=== PATIENT | male | born 1980 | race Caucasian/White ===

== ENCOUNTER → 2017-05-07 | Outpatient (REF) | payer OTHER | LOC: M LAB REF 13:54 | PROVIDERS: ATTEND Internal Medicine Medical Oncology | DX: D47.3 Essential (hemorrhagic) thrombocythemia (principal) ==

== ENCOUNTER → 2017-11-05 | Outpatient (REF) | payer OTHER | LOC: M SFHCLERA 15:24 | DX: J02.9 Acute pharyngitis, unspecified (principal) ==

== ENCOUNTER → 2019-05-02 | Outpatient (CLI) | payer BC, OTHER ==
[~2019-05-02] MED LIST: CLAR1TAB13 PO
--- NOTE | 2019-05-02 13:58 | REP ---
DIGITAL BILATERAL DIAGNOSTIC MAMMOGRAPHY WITH CAD AND FOCUSED BILATERAL SUBAREOLAR BREAST SONOGRAPHY: HISTORY: Two 5 mm lumps midline below the nipple, pea-sized lump. Paternal cousin with history of breast carcinoma. Lump is present times 2-3 weeks. MAMMOGRAPHIC FINDINGS: Two skin markers are affixed to the skin at the site of the palpable lumps projecting in the subareolar region. Craniocaudad and mediolateral oblique views of the right breast demonstrate a mild gynecomastia pattern in the subareolar tissue with a fibroglandular elements. No abnormalities noted on the left. No mass or microcalcification is observed. No worrisome skin change is seen. SONOGRAPHIC FINDINGS: Subareolar regions of both breasts are scanned. There is some hypoechoic tissue posterior to the right nipple consistent with mild gynecomastia. No mass lesion is seen. No similar changes are noted on the left. IMPRESSION: BIRADS 2: BI-RADS/ACR category 2 mammogram. Benign Findings. BIRADS category 2 benign findings. Gynecomastia pattern right breast. Clinical follow-up is advised. This mammogram was interpreted with the aid of an FDA-approved computer-aided detection system. The patient states she had a clinical breast exam in April 2019. The patient letter being requested is M#[email or web address]. Electronically Signed by Palomo Mcginnis MD 05/02/2019 02:17 P
== END ==
LOC: M RAD 10:59
PROVIDERS: ATTEND Nurse Practitioner
DX: N63.10 Unspecified lump in the right breast, unspecified quadrant (principal); Z85.3 Personal history of malignant neoplasm of breast; N62 Hypertrophy of breast

== ENCOUNTER → 2019-09-12 | Outpatient (REF) | payer OTHER | LOC: M SFHCLERA 13:26 | PROVIDERS: ATTEND Nurse Practitioner Family | DX: R53.81 Other malaise (principal) ==

== ENCOUNTER → 2019-09-22 | Outpatient (CLI) | payer BC, OTHER ==
--- NOTE | 2019-09-22 11:24 | REP ---
CT chest without contrast: History: Dyspnea. No prior study. CT findings: Digital preliminary shrink pit supervisor radiograph and CT images demonstrate a Bochdalek hernia of the left diaphragm transmitting the splenic flexure. 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 The pancreatic tail and adjacent fat are also transmitted into the lower chest through the fairly large posterior left diaphragmatic hernia. No adrenal lesion is seen on either side. The visualized upper abdominal structures are otherwise unremarkable. There is no evidence of hilar or mediastinal mass or adenopathy. There is minimal fissural fibrosis along the major fissure on the left. There is a 4 mm noncalcified nodule in the left upper lobe adjacent to the fissure. There is another 4 mm nodule in the left lower lobe visible on page 68 of 122 in series 201 of today's study. No other significant pulmonary nodule is appreciated. No infiltrate or mass lesion is seen. Impression: Fairly large posterior left hemidiaphragmatic hernia transmitting the splenic flexure of the colon and the tail of the pancreas into the left lower chest. There are associated old post-traumatic rib deformities. The spleen is absent. There are two 4 mm noncalcified pulmonary nodules in the left lung. Otherwise no acute disease. Consider followup chest CT study in 1 year. Electronically Signed by Palomo Mcginnis MD 09/22/2019 12:26 P
== END ==
LOC: M RAD 08:00
PROVIDERS: ATTEND Physician Assistant
DX: R06.02 Shortness of breath (principal)

== ENCOUNTER → 2020-11-04 | Outpatient (CLI) | payer BC, OTHER ==
[~2020-11-04] MED LIST changes: +BUSP1TAB PO; +FEXO180T58 PO; +MULTTAB61 PO; +OMEP-221 PO
== END ==
LOC: M LABSMTC 10:54
PROVIDERS: ATTEND Anesthesiology
DX: Z01.812 Encounter for preprocedural laboratory examination (principal); Z20.822 Contact with and (suspected) exposure to COVID-19

== ENCOUNTER 2020-11-09 09:52 | Day surgery (SDC) | payer BC, OTHER ==
[~2020-11-09] VITALS: Ht 180.3 cm; Wt 133.8 kg
[~2020-11-09 09:52] MED LIST changes: +LR 1,000 ML IV ONE; +ceFAZolin SOD 2 GM in IV 1 EA IV ONE
--- OUTSIDE RECORDS SUMMARY | 2020-11-09 09:57 | CCD | Continuity of Care Document ---
Author Author Bhavesh GARY [facility] Organization Unknown Address [address] [place] [address] [place] [address] Phone [phone] Care Team Providers Care Geometrician Name Role Phone Husam De Paz D.O. [facility] [phone] Problems Active Problems Provider Date Allergic rhinitis Kourtney Gary FNP-BC Onset: 12/28/2005 Diaphragmatic hernia Husam De Paz D.O., FAA Onset: Family history of ischemic heart disease Brant Sanz RPA Onset: 09/24/2008 Anxiety state Magdalena Marquez PA Onset: 09/06 Obstructive sleep apnea syndrome Magdalena Marquez PA Onset: 09/06/2020 Social History Type Date Description Comments Sex Unknown Tobacco Use Start: Unknown Never Smoked Cigarettes ETOH Use Occasionally consumes beer Recreational Drug Use Never Used Drugs Tobacco Use Start: Unknown Patient has never smoked Allergies, Adverse Reactions, Alerts Description No Known Drug Allergies Medications Active Medications SIG Qnty Indications Ordering Provide r Date Omeprazole 40mg Capsules DR 1 by mouth every day 30caps Kourtney Gary FNP-BC 1 Buspirone HCL 7.5mg Tablets one tab by mouth twice a day 60tabs Kourtney Gary FNP-BC 020 Sherri Allergy 180mg Tablets 1 by mouth every day Unknown Flintstones Gummies Chewtabs 2 PO prn Unknown Medications Administered in Office Medication SIG Qnty Indications Ordering Provider Date Injection (SC)/(Im) Injection Magdalena Marquez PA 05/17/2020 Immunizations CPT Code Status Date Vaccine Lot # [id number] Given 05/17/2020 Influenza Virus Vaccine, Quadrivalent, Slit Virus, Im Use 3Y & Up [id number] Vital Signs Date Vital Result Comment 09/29/2020 3:49pm BP Systolic 138 mmHg BP Diastolic 86 mmHg Body Temperature 97.1 F Heart Rate 86 /min Respiratory Rate 19 /min Height 71 inches 5'11" Weight 290.00 lb [place] Body Weight 172 lb BMI (Body Mass Index) 40.4 kg/m2 O2 % BldC Oximetry 95 % (AT Rest), (Room Air ) 09/06/2020 1:05pm BP Systolic 142 mmHg BP Diastolic 80 mmHg Body Temperature 97.8 F Heart Rate 95 /min Respiratory Rate 16 /min Height 71 inches 5'11" Weight 292.00 lb [place] Body Weight 172 lb BMI (Body Mass Index) 40.7 kg/m2 O2 % BldC Oximetry 97 % (AT Rest), (Room Air ) Results Test Acquired Date Facility Test Result H/L Range Note CBC 09/29/2020 [facility] WBC 9.3 10E3/uL 4.1 - 10.9 1 RBC 4.85 10E6/uL 4.20 - 6.30 HGB 15.3 g/dL 12.0 - 18.0 HCT 46.2 % 37.0 - 51.0 MCV 95.3 fL 80.0 - 97.0 MCH 31.5 pg 26.0 - 32.0 MCHC 33.1 g/dL 31.0 - 36.0 PLT 428 10E3/uL 140 - 440 RDW-CV 14.0 % 11.5 - 14.5 Lym% 28.3 % 10.0 - 58.5 Neut% 60.9 % 37.0 - 92.0 MXD% 10.8 % 0.1 - 24.0 Lym# 2.6 10E3/uL 0.6 - 4.1 Neut# 5.7 % 2.0 - 7.8 MXD# 1.0 10E3/uL 0.0 - 1.8 MPV 9.4 fL 9.0 - 13.0 Laboratory test finding 09/29/2020 [facility] Sedimentation Rate 7 mm/hr 0 - 20 CMP 09/29/2020 [facility] Glu 87 mg/dL 70 - 110 BUN 15 mg/dL 8 - 23 Creat 0.9 mg/dL 0.7 - 1.2 BUN/Creatinine Ratio 17.5 CALC Na 137 mmol/L 136 - 145 K 4.5 mmol/L 3.5 - 5.1 CL 102.0 mmol/L 98.0 - 107.0 Co2 26.7 mmol/L 22.0 - 29.0 CA 9.6 mg/dL 8.6 - 10.2 TP 7.1 g/dL 6.6 - 8.7 Alb 4.5 g/dL 3.5 - 5.2 A/G Ratio 1.7 CALC Globulin 2.7 CALC Alp 96.7 U/L 40 - 129 Alt (SGPT) 31 U/L 0 - 41 Ast (Sgot) 19 U/L 0 - 40 Tbili 0.41 mg/dL 0.0 - 1.2 Osmolality-Calculated 274.4 CALC Anion Gap 13 mmol/L eGFR 122 # Calc 2 eGFR Non-Afr. Gu[place]ian 105 # Calc 3 Laboratory test finding 09/29/2020 [place], [place] [id number] [phone] Amylase 69 U/L 30 - 110 Lipase Serum 51 U/L 13 - 60 Laboratory test finding 05/17/2020 [facility] TSH 1.025 ulU/mL 0.60 - 4.8 CMP 04/22/2020 [facility] Glu 105 mg/dL 70 - 110 4 BUN 18 mg/dL 8 - 23 Creat 0.8 mg/dL 0.7 - 1.2 BUN/Creatinine Ratio 20.8 Calc Na 139 mmol/L 136 - 145 K 4.3 mmol/L 3.5 - 5.1 CL 102.2 mmol/L 98.0 - 107.0 Co2 27.6 mmol/L 22.0 - 29.0 CA 9.2 mg/dL 8.6 - 10.2 TP 7.1 g/dL 6.6 - 8.7 Alb 4.5 g/dL 3.5 - 5.2 A/G Ratio 1.7 Calc Globulin 2.6 Calc Alp 91.5 U/L 40 - 129 Alt (SGPT) 32 U/L 0 - 41 Ast (Sgot) 26 U/L 0 - 40 Tbili 0.60 mg/dL 0.0 - 1.2 Osmolality-Calculated 281.0 Calc Anion Gap 16 mmol/L eGFR 129 # Calc 5 eGFR Non-Afr. Guamanian 111 # Calc 6 Laboratory test finding 04/22/2020 [place] [address] [phone] Pro-BNP 7 pg/mL 0 - 125 1 NORMAL RANGES Age WBC RBC HGB HCT MCV PLT Adult M 4.1-10.9 4.20-6.30 12.0-18.0 37.0-51.0 80-97 140-440 Adult F 4.1-10.9 4.04-5.48 12.0-18.0 37.0-51.0 80-97 140-440 0 -1 Yr 5.0-20.0 3.9-5.9 15-18 MV: 44 MV: 91 MV: 277 2-9 Yr. 6.0-17.0 3.8-5.4 11-13 MV: 37 MV: 78 MV: 300 10 Yrs. 5.0-13.0 3.8-5.4 12-15 MV: 39 MV: 80 MV: 250 NOTE: * FOR ADULT BLACK MALES AND FEMALES, NORMAL WBC IS 2.9-7.7 K/ML * FOR ADULT BLACK MALES AND FEMALES, NORMAL RBC,HGB, AND HCT IS 5% LESS SOURCE FOR DATA: [employer] 1800 OPERATION MANUAL( AUTOMATED BLOOD COUNTS AND DIFF.) APPENDIX B-3 CHRONIC KIDNEY DISEASE STAGING PER NKF: MALE GFR INTERPRETATION: 20-49 YRS: >60 mL/min Normal 50-59 YRS: >56 mL/min Normal 60-69 YRS: >49 mL/min Normal 70-79 YRS: >42 mL/min Normal 80 and above >35 mL/min Normal FEMALE GRF INTERPRETATION: 20-39 YRS: >60 mL/min Normal 40-49 YRS: >58 mL/min Normal 50-59 YRS: >51 mL/min Normal 60-69 YRS: >45 mL/min Normal 70-79 YRS: >39 mL/min Normal 80 and above >32 mL/min Normal 2 CKD-EPI 3 CKD-EPI 4 CHRONIC KIDNEY DISEASE STAGI NG PER NKF: MALE GFR INTERPRETATION: 20-49 YRS: >60 mL/min Normal 50-59 YRS: >56 mL/min Normal 60-69 YRS: >49 mL/min Normal 70-79 YRS: >42 mL/min Normal 80 and above >35 mL/min Normal FEMALE GRF INTERPRETATION: 20-39 YRS: >60 mL/min Normal 40-49 YRS: >58 mL/min Normal 50-59 YRS: >51 mL/min Normal 60-69 YRS: >45 mL/min Normal 70-79 YRS: >39 mL/min Normal 80 and above >32 mL/min Normal 5 CKD-EPI 6 CKD-EPI Procedures Date Code Description Status 05/17/2020 67436 Injection (SC)/(Im) Completed Medical Devices Description No Information Available Encounters Type Date Location Provider Dx Diagnosis Office Visit 09/29/2020 3:40p [facility] Kourtney Gary FNP-BC R10.84 Generalized abdominal pain R14.0 Abdominal distension (gaseou s) K42.9 Umbilical hernia without obs truction or gangrene Office Visit 09/06/2020 1:00p [facility] Crystal Marquez PA F41.9 Anxiety disorder, unspecified G47.33 Obstructive sleep apnea (storm lt) (pediatric) Office Visit 06/04/2020 10:00a [facility] Crystal Marquez PA R45.4 Irritability and anger F41.9 Anxiety disorder, unspecifie d Office Visit 05/17/2020 1:00p [facility] Crystal Marquez PA R60.9 Edema, unspecified R45.4 Irritability and anger Z23 Encounter for immunization Office Visit 04/22/2020 9:15a [facility] Crystal Marquez PA R60.9 Edema, unspecified R06.02 Shortness of breath Assessments Date Code Description Provider 09/29/2020 R10.84 Generalized abdominal pain Kourtney Carney FNP-BC 09/29/2020 R14.0 Abdominal distension (gaseous) R pollyselenaKourtney mar FNP-BC 09/29/2020 K42.9 Umbilical hernia without obstruc tion or gangrene Kourtney Gary FNP-BC 09/06/2020 F41.9 Anxiety disorder, unspecified Ba Magdalena carr, PA 09/06/2020 G47.33 Obstructive sleep apnea (adult) (pediatric) Magdalena Marquez, PA 06/04/2020 R45.4 Irritability and anger Magdalena oR, PA 06/04/2020 F41.9 Anxiety disorder, unspecified Ba Magdalena carr M, PA 05/17/2020 R60.9 Edema, unspecified Magdalena Marquez, PA 05/17/2020 R45.4 Irritability and anger Magdalena Ro, PA 05/17/2020 Z23 Encounter for immunization Magdalena Hernandez, PA 04/22/2020 R60.9 Edema, unspecified Magdalena Marquez M, PA 04/22/2020 R06.02 Shortness of breath Magdalena Marquez, PA Plan of Treatment Future Appointment(s):* 12/07/2020 1:00 pm - Kourtney Gary FNP-BC at [facility] Functional Status Description No Information Available Mental Status Description No Information Available Referrals Refer to Dr Reason for Referral Status Appt Date Rodrigo Camarillo D.O. Urgent Referral umbilical hernia with p ain Sent 10/04/2020 6 [facility], [address] [place] [address] [phone]
--- OUTSIDE RECORDS SUMMARY | 2020-11-09 09:57 | CCD | Continuity of Care Document ---
Author Author Bhavesh CHERY MD Organization Unknown Address [address] [place] [address] Phone [phone] Care Team Providers Care Day Care Attendant Name Role Phone Carlitos Becerra R.P.A.. AUT[facility] [phone] Husam De Paz D.O. AUT[facility] [phone] Problems Active Problems Provider Date Restrictive lung disease JEANCARLOS Smith Onset: 09/23/19 20 Restrictive lung disease JEANCARLOS Smith Onset: 07/03/20 19 Restrictive lung disease JEANCARLOS Smith Onset: 07/03/20 19 Other nonspecific abnormal finding of lung field JEANCARLOS Mart Onset: 05/15/2019 Difficulty breathing JEANCARLOS Smith Onset: 05/15/2019 Social History Type Date Description Comments Sex Unknown ETOH Use Sociable Tobacco Use Start: Unknown Patient has never smoked Smoking Status Reviewed: 09/23/19 Patient has never smoked Allergies, Adverse Reactions, Alerts Description No Known Drug Allergies Medications Active Medications SIG Qnty Indications Ordering Provide r Date Claritin 10mg Tablets take one by mouth once a day as needed Unknown Fexofenadine HCL 180mg Tablets every day Unknown Immunizations CPT Code Status Date Vaccine Lot # [id number] Given 07/03/2019 Afluria, Quadrivalent, 0.5ml , [facility]# [id number] Vital Signs Date Vital Result Comment 10/04/2020 9:42am BP Systolic 150 mmHg BP Diastolic 86 mmHg Heart Rate 79 /min Height 71 inches 5'11" Weight 296.50 lb BMI (Body Mass Index) 41.3 kg/m2 [place] Body Weight 172 lb Weight 134.492 kg BSA (Body Surface Area) 2.49 m2 09/23/2019 1:45pm BP Systolic 132 mmHg BP Diastolic 80 mmHg Heart Rate 87 /min O2 % BldC Oximetry 93 % Height 71 inches 5'11" Weight 278.00 lb BMI (Body Mass Index) 38.8 kg/m2 [place] Body Weight 172 lb Weight 126.101 kg BSA (Body Surface Area) 2.43 m2 Results Description No Information Available Procedures Description No Information Available Medical Devices Description No Information Available Encounters Description No Information Available Assessments Description No Information Available Plan of Treatment No Information Available Functional Status Description No Information Available Mental Status Description No Information Available Referrals Refer to Reason for Referral Status Appt Date Jakob Chery JR, MD UMBILICAL HERNIA W/ PAIN Scheduled 10/04/[address] [place] [address] [phone]
--- OUTSIDE RECORDS SUMMARY | 2020-11-09 09:57 | CCD | Continuity of Care Document ---
Author Author Bhavesh GARY [facility] Organization Unknown Address [address] [place] [address] [place] [address] Phone [phone] Care Team Providers Care Oil Extractor Name Role Phone Husam De Paz D.O. [facility] [phone] Problems Active Problems Provider Date Allergic rhinitis [...] CPT Code Status Date Vaccine Lot # [id number] Given 05/17/2020 Influenza Virus Vaccine, Quadrivalent, Slit Virus, Im Use 3Y & Up [id number] Vital Signs Date Vital Result Comment 09/29/2020 3:49pm BP Systolic 138 mmHg BP Diastolic 86 mmHg Body Temperature 97.1 F Heart Rate 86 /min Respiratory Rate 19 /min Height 71 inches 5'11" Weight 290.00 lb [place] Body Weight 172 lb BMI (Body Mass Index) 40.4 kg/m2 O2 % BldC Oximetry 95 % (AT Rest), (Room Air ) 09/06/2020 1:05pm BP Systolic 142 mmHg BP Diastolic 80 mmHg Body Temperature 97.8 F Heart Rate 95 /min Respiratory Rate 16 /min Height 71 inches 5'11" Weight 292.00 lb [place] Body Weight 172 lb BMI (Body Mass [...] eGFR 122 # Calc 2 eGFR Non-Afr. [place] 105 # Calc 3 Laboratory test finding 09/29/2020 [place], [place] [id number] [phone] Amylase 69 U/L 30 - 110 Lipase [...] eGFR 129 # Calc 5 eGFR Non-Afr. [place] 111 # Calc 6 Laboratory test finding 04/22/2020 [place] [address] [phone] Pro-BNP 7 pg/mL 0 - 125 1 [...] HCT IS 5% LESS SOURCE FOR DATA: [employer] 1800 OPERATION MANUAL( AUTOMATED BLOOD COUNTS AND [...] CKD-EPI Procedures Date Code Description Status 05/17/2020 03562 Injection (SC)/(Im) Completed Medical Devices Description No Information Available Encounters Type Date Location Provider Dx Diagnosis Office Visit 09/29/2020 3:40p [facility] Kourtney Gary FNP-BC R10.84 Generalized abdominal pain R14.0 Abdominal distension (gaseou s) K42.9 Umbilical hernia without obs truction or gangrene Office Visit 09/06/2020 1:00p [facility] Crystal Marquez PA F41.9 Anxiety disorder, unspecified G47.33 Obstructive sleep apnea (storm lt) (pediatric) Office Visit 06/04/2020 10:00a [facility] Crystal Marquez PA R45.4 Irritability and anger F41.9 Anxiety disorder, unspecifie d Office Visit 05/17/2020 1:00p [facility] Crystal Marquez PA R60.9 Edema, unspecified R45.4 Irritability and anger Z23 Encounter for immunization Office Visit 04/22/2020 9:15a [facility] Crystal Marquez PA R60.9 Edema, unspecified [...] PA 06/04/2020 R45.4 Irritability and anger Magdalena Ro, PA 06/04/2020 F41.9 Anxiety disorder, unspecified Ba Magdalena carr M, PA 05/17/2020 R60.9 Edema, unspecified Magdalena Marquez, PA 05/17/2020 R45.4 Irritability and anger Magdalena Ro, PA 05/17/2020 Z23 Encounter for immunization Magdalena Hernandez, PA 04/22/2020 R60.9 Edema, unspecified Magdalena Marquez M, PA 04/22/2020 R06.02 Shortness of breath Magdalena Marquez, PA Plan of Treatment Future Appointment(s):* 12/07/2020 1:00 pm - Kourtney Gary FNP-BC at [facility] Functional Status Description No Information Available Mental Status Description No Information Available Referrals Refer to Dr Reason for Referral Status Appt Date Rodrigo Camarillo D.O. Urgent Referral umbilical hernia with p ain Sent 10/04/2020 6 [facility], [address] [place] [address] [phone]
--- OUTSIDE RECORDS SUMMARY | 2020-11-09 09:57 | CCD | Continuity of Care Document ---
Author Author Bhavesh GARY [facility] Organization Unknown Address [address] [place] [address] [place] [address] Phone [phone] Care Team Providers Care Yardage Control Operator Forming Name Role Phone Husam De Paz D.O. [facility] [phone] Problems Active Problems Provider Date Allergic rhinitis [...] CPT Code Status Date Vaccine Lot # [id number] Given 05/17/2020 Influenza Virus Vaccine, Quadrivalent, Slit Virus, Im Use 3Y & Up [id number] Vital Signs Date Vital Result Comment 09/29/2020 3:49pm BP Systolic 138 mmHg BP Diastolic 86 mmHg Body Temperature 97.1 F Heart Rate 86 /min Respiratory Rate 19 /min Height 71 inches 5'11" Weight 290.00 lb [place] Body Weight 172 lb BMI (Body Mass Index) 40.4 kg/m2 O2 % BldC Oximetry 95 % (AT Rest), (Room Air ) 09/06/2020 1:05pm BP Systolic 142 mmHg BP Diastolic 80 mmHg Body Temperature 97.8 F Heart Rate 95 /min Respiratory Rate 16 /min Height 71 inches 5'11" Weight 292.00 lb [place] Body Weight 172 lb BMI (Body Mass [...] eGFR 122 # Calc 2 eGFR Non-Afr. Portuguese 105 # Calc 3 Laboratory test finding 09/29/2020 [place], [place] [address] [phone] Amylase 69 U/L 30 - 110 Lipase [...] eGFR 129 # Calc 5 eGFR Non-Afr. Portuguese 111 # Calc 6 Laboratory test finding 04/22/2020 [place] [address] [phone] Pro-BNP 7 pg/mL 0 - 125 1 [...] HCT IS 5% LESS SOURCE FOR DATA: [employer] 1800 OPERATION MANUAL( AUTOMATED BLOOD COUNTS AND [...] CKD-EPI Procedures Date Code Description Status 05/17/2020 17185 Injection (SC)/(Im) Completed Medical Devices Description No Information Available Encounters Type Date Location Provider Dx Diagnosis Office Visit 09/29/2020 3:40p [place] [facility] Kourtney Gary FNP-BC R10.84 Generalized abdominal pain R14.0 Abdominal distension (gaseou s) K42.9 Umbilical hernia without obs truction or gangrene Office Visit 09/06/2020 1:00p [facility] Crystal Marquez PA F41.9 Anxiety disorder, unspecified G47.33 Obstructive sleep apnea (storm lt) (pediatric) Office Visit 06/04/2020 10:00a [facility] Crystal Marquez PA R45.4 Irritability and anger F41.9 Anxiety disorder, unspecifie d Office Visit 05/17/2020 1:00p [facility] Crystal Marquez PA R60.9 Edema, unspecified R45.4 Irritability and anger Z23 Encounter for immunization Office Visit 04/22/2020 9:15a [facility] [facility] Crystal Marquez PA R60.9 Edema, unspecified [...] 1:00 pm - Kourtney Gary FNP-BC at [facility] Functional Status Description No Information Available Mental Status Description No Information Available Referrals Refer to Dr Reason for Referral Status Appt Date Rodrigo Camarillo D.O. Urgent Referral umbilical hernia with p ain Sent 10/04/2020 6 [facility], [address] [place] [address] [phone]
--- OUTSIDE RECORDS SUMMARY | 2020-11-09 09:57 | CCD | Continuity of Care Document ---
Author Author Bhavesh GARY [facility] Organization Unknown Address [address] [place] [address] [place] [phone] Phone [phone] Care Team Providers Care Personalization Specialist Name Role Phone Husam De Paz D.[facility]. [facility] [phone] Problems Active Problems Provider Date Allergic rhinitis [...] CPT Code Status Date Vaccine Lot # [id number] Given 05/17/2020 Influenza Virus Vaccine, Quadrivalent, Slit Virus, Im Use 3Y & Up [id number] Vital Signs Date Vital Result Comment 10/20/2020 4:20pm BP Systolic 120 mmHg BP Diastolic 80 mmHg Body Temperature 97.5 F Heart Rate 86 /min Respiratory Rate 18 /min Height 71 inches 5'11" Weight 293.00 lb [place] Body Weight 172 lb BMI (Body Mass Index) 40.9 kg/m2 O2 % BldC Oximetry 94 % 09/29/2020 3:49pm BP Systolic 138 mmHg BP Diastolic 86 mmHg Body Temperature 97.1 F Heart Rate 86 /min Respiratory Rate 19 /min Height 71 inches 5'11" Weight 290.00 lb [place] Body Weight 172 lb BMI (Body Mass Index) 40.4 kg/m2 O2 % BldC Oximetry 95 % (AT Rest), (Room Air ) Results [...] eGFR 122 # Calc 2 eGFR Non-Afr. [place] Citizen 105 # Calc 3 Laboratory test finding 09/29/2020 [place], [place] [id number] [phone] Amylase 69 U/L 30 - 110 Lipase [...] eGFR 129 # Calc 5 eGFR Non-Afr. [place] Citizen 111 # Calc 6 Laboratory test finding 04/22/2020 [place] [address] [phone] Pro-BNP 7 pg/mL 0 - 125 1 [...] HCT IS 5% LESS SOURCE FOR DATA: [employer] 1800 OPERATION MANUAL( AUTOMATED BLOOD COUNTS AND [...] CKD-EPI Procedures Date Code Description Status 05/17/2020 71297 Injection (SC)/(Im) Completed Medical Devices Description No Information Available Encounters Type Date Location Provider Dx Diagnosis Office Visit 09/29/2020 3:40p [place] [facility] Kourtney Gary FNP-BC R10.84 Generalized abdominal pain R14.0 Abdominal distension (gaseou s) K42.9 Umbilical hernia without obs truction or gangrene Office Visit 09/06/2020 1:00p [facility] Crystal Marquez PA F41.9 Anxiety disorder, unspecified G47.33 Obstructive sleep apnea (storm lt) (pediatric) Office Visit 06/04/2020 10:00a [facility] Crystal Marquez PA R45.4 Irritability and anger F41.9 Anxiety disorder, unspecifie d Office Visit 05/17/2020 1:00p [facility] Crystal Marquez PA R60.9 Edema, unspecified R45.4 Irritability and anger Z23 Encounter for immunization Office Visit 04/22/2020 9:15a [facility] Crystal Marquez PA R60.9 Edema, unspecified R06.02 Shortness of breath Assessments Date Code Description Provider 09/29/2020 R10.84 Generalized abdominal pain Kourtney Carney FNP-BC 09/29/2020 R14.0 Abdominal distension (gaseous) R Kourtney patterson FNP-BC 09/29/2020 K42.9 Umbilical hernia without obstruc tion or gangrene Kourtney Gary FNP-BC 09/06/2020 F41.9 Anxiety disorder, unspecified Ba Magdalena carr M, PA 09/06/2020 G47.33 Obstructive sleep apnea (adult) (pediatric) Magdalena Marquez, PA 06/04/2020 R45.4 Irritability and anger Magdalena Ro, PA 06/04/2020 F41.9 Anxiety disorder, unspecified Ba Crystal carra M, PA 05/17/2020 R60.9 Edema, unspecified Crystal Marqueza M, PA 05/17/2020 R45.4 Irritability and anger Magdalena Ro, PA 05/17/2020 Z23 Encounter for immunization Magdalena Hernandez, PA 04/22/2020 R60.9 Edema, unspecified Crystal Marqueza M, PA 04/22/2020 R06.02 Shortness of breath Magdalena Marquez, PA Plan of Treatment Future Appointment(s):* 12/07/2020 1:00 pm - Kourtney Gary FNP-BC at [place] [facility] Functional Status Description No Information Available Mental Status Description No Information Available Referrals Refer to Dr Reason for Referral Status Appt Date Rodrigo Camarillo D.O. Urgent Referral umbilical hernia with p ain Sent 10/04/[address] [facility], [address] [place] [id number] [phone]
--- OUTSIDE RECORDS SUMMARY | 2020-11-09 09:57 | CCD | Continuity of Care Document ---
Author Author Bhavesh [facility] Organization Unknown Address [address] [place] [address] [place] [id number] Phone [phone] Care Team Providers Care Stave Log Ripsaw Operator Name Role Phone Husam De [facility] [phone] Problems Active Problems Provider Date Allergic rhinitis [...] CPT Code Status Date Vaccine Lot # [id number] Given 05/17/2020 Influenza Virus Vaccine, Quadrivalent, Slit Virus, Im Use 3Y & Up [id number] Vital Signs Date Vital Result Comment 09/29/2020 3:49pm BP Systolic 138 mmHg BP Diastolic 86 mmHg Body Temperature 97.1 F Heart Rate 86 /min Respiratory Rate 19 /min Height 71 inches 5'11" Weight 290.00 lb [place] Body Weight 172 lb BMI (Body Mass Index) 40.4 kg/m2 O2 % BldC Oximetry 95 % (AT Rest), (Room Air ) 09/06/2020 1:05pm BP Systolic 142 mmHg BP Diastolic 80 mmHg Body Temperature 97.8 F Heart Rate 95 /min Respiratory Rate 16 /min Height 71 inches 5'11" Weight 292.00 lb [place] Body Weight 172 lb BMI (Body Mass [...] 9.0 - 13.0 Laboratory test finding 09/29/2020 [place] [address] [phone] Amylase <pending> Lipase Serum <pending> Laboratory test finding 05/17/2020 [facility] TSH 1.025 ulU/mL 0.60 - 4.8 CMP 04/22/2020 [facility] Glu 105 mg/dL 70 - 110 2 BUN 18 mg/dL 8 - 23 Creat [...] Gap 16 mmol/L eGFR 129 # Calc 3 eGFR Non-Afr. Hong Konger 111 # Calc 4 Laboratory test finding 04/22/2020 [place] [address] [phone] Pro-BNP 7 pg/mL 0 - 125 1 [...] HCT IS 5% LESS SOURCE FOR DATA: [employer] 1800 OPERATION MANUAL( AUTOMATED BLOOD COUNTS AND [...] 80 and above >32 mL/min Normal 2 CHRONIC KIDNEY DISEASE STAGI NG PER NKF: [...] Normal 80 and above >32 mL/min Normal 3 CKD-EPI 4 CKD-EPI Procedures Date Code Description Status 05/17/2020 52271 Injection (SC)/(Im) Completed Medical Devices Description No Information Available Encounters Type Date Location Provider Dx Diagnosis Office Visit 09/29/2020 3:40p [facility] [place] [facility] Kourtney Gary [facility] R10.84 Generalized abdominal pain R14.0 Abdominal distension (gaseou s) K42.9 Umbilical hernia without obs truction or gangrene Office Visit 09/06/2020 1:00p [facility] Crystal Marquez PA F41.9 Anxiety disorder, unspecified G47.33 Obstructive sleep apnea (storm lt) (pediatric) Office Visit 06/04/2020 10:00a [facility] Crystal Marquez PA R45.4 Irritability and anger F41.9 Anxiety disorder, unspecifie d Office Visit 05/17/2020 1:00p [facility] Crystal Marquez PA R60.9 Edema, unspecified R45.4 Irritability and anger Z23 Encounter for immunization Office Visit 04/22/2020 9:15a [facility] Crystal Marquez PA R60.9 Edema, unspecified R06.02 Shortness of breath Assessments Date Code Description Provider 09/29/2020 R10.84 Generalized abdominal pain Round sRaghavendrajorge Rodriguez [facility] 09/29/2020 R14.0 Abdominal distension (gaseous) R Kourtney patterson [facility] 09/29/2020 K42.9 Umbilical hernia without obstruc tion or gangrene Abdirahman Kourtney M, [facility] 09/06/2020 F41.9 Anxiety disorder, unspecified Ba Magdalena carr, PA 09/06/2020 G47.33 Obstructive sleep apnea (adult) (pediatric) Magdalena Marquez, PA 06/04/2020 R45.4 Irritability and anger JosselinaclMagdalena west, PA 06/04/2020 F41.9 Anxiety disorder, unspecified Ba Magdalena carr, PA 05/17/2020 R60.9 Edema, unspecified Magdalena Marquez, PA 05/17/2020 R45.4 Irritability and anger [place] Magdalena [place], PA 05/17/2020 Z23 Encounter for immunization Magdalena Hernandez, PA 04/22/2020 R60.9 Edema, unspecified Magdalena Marquez, PA 04/22/2020 R06.02 Shortness of breath Magdalena Marquez PA Plan of Treatment Future Appointment(s):* 12/07/2020 1:00 pm - Kourtney Gary FNP-[facility] at [facility] Functional Status Description No Information Available Mental Status Description No Information Available Referrals Description No Information Available
--- OUTSIDE RECORDS SUMMARY | 2020-11-09 09:58 | CCD | Continuity of Care Document ---
Author Author Bhavesh MARQUEZ [facility] Organization Unknown Address [address] [place], [place] [address] Phone [phone] Care Team Providers Care Clinical Molecular Geneticist Name Role Phone Husam De Paz D.O. [facility] [phone] Problems Active Problems Provider Date Allergic rhinitis Kourtney Gary [facility] Onset: 12/28/2005 Diaphragmatic hernia Husam De Paz D.O., [employer] Onset: Family history of ischemic heart disease Brant Sanz, [facility] Onset: 09/24/2008 Social History Type Date Description Comments Sex Unknown Tobacco Use Start: Unknown Never Smoked Cigarettes ETOH Use Occasionally consumes beer Recreational Drug Use Never Used Drugs Tobacco Use Start: Unknown Patient has never smoked Allergies, Adverse Reactions, Alerts Description No Known Drug Allergies Medications Active Medications SIG Qnty Indications Ordering Provide r Date Buspirone HCL 7.5mg Tablets one tab by mouth twice a day 60tabs Kourtney Gary FNP- 020 Sherri Allergy 180mg Tablets 1 by mouth every day Unknown Flintstones Gummies Chewtabs 2 PO prn Unknown Medications Administered in Office Medication SIG Qnty Indications Ordering Provider Date Injection (SC)/(Im) Injection Magdalena Marquez PA 05/17/2020 Immunizations CPT Code Status Date Vaccine Lot # [id number] Given 05/17/2020 Influenza Virus Vaccine, Quadrivalent, Slit Virus, Im Use 3Y & Up [id number] Vital Signs Date Vital Result Comment 09/06/2020 1:05pm BP Systolic 142 mmHg BP Diastolic 80 mmHg Body Temperature 97.8 F Heart Rate 95 /min Respiratory Rate 16 /min Height 71 inches 5'11" Weight 292.00 lb [place] Body Weight 172 lb BMI (Body Mass Index) 40.7 kg/m2 O2 % BldC Oximetry 97 % (AT Rest), (Room Air ) 06/04/2020 9:54am BP Systolic 110 mmHg BP Diastolic 84 mmHg Body Temperature 97.7 F Heart Rate 75 /min Respiratory Rate 17 /min Height 71 inches 5'11" Weight 276.00 lb [place] Body Weight 172 lb BMI (Body Mass Index) 38.5 kg/m2 O2 % BldC Oximetry 91 % (AT Rest), (Room Air ) Results Test Acquired Date Facility Test Result H/L Range Note Laboratory test finding 05/17/2020 [facility] TSH 1.025 ulU/mL 0.60 - 4.8 CMP 04/22/2020 [facility] Glu 105 mg/dL 70 - 110 1 BUN 18 mg/dL 8 - 23 Creat [...] Gap 16 mmol/L eGFR 129 # Calc 2 eGFR Non-Afr. [place] 111 # Calc 3 Laboratory test finding 04/22/2020 [place] [address] [phone] Pro-BNP 7 pg/mL 0 - 125 1 CHRONIC KIDNEY DISEASE STAGI NG PER NKF: [...] >32 mL/min Normal 2 CKD-EPI 3 CKD-EPI Procedures Date Code Description Status 05/17/2020 78869 Injection (SC)/(Im) Completed Medical Devices Description No Information Available Encounters Type Date Location Provider Dx Diagnosis Office Visit 06/04/2020 10:00a [facility] [facility] Crystal Marquez PA R45.4 Irritability and anger F41.9 Anxiety disorder, unspecifie d Office Visit 05/17/2020 1:00p [facility] Crystal Marquez PA R60.9 Edema, unspecified R45.4 Irritability and anger Z23 Encounter for immunization Office Visit 04/22/2020 9:15a [facility] Crystal Marquez a Michael PA R60.9 Edema, unspecified R06.02 Shortness of breath Assessments Date Code Description Provider 06/04/2020 R45.4 Irritability and anger Jose Maria Roantha M, PA 06/04/2020 F41.9 Anxiety disorder, unspecified Ba Jose Maria crarantha M, PA 05/17/2020 R60.9 Edema, unspecified [place] Magdalena M, PA 05/17/2020 R45.4 Irritability and anger Josselinaclou gh Magdalena M, PA 05/17/2020 Z23 Encounter for immunization Crystal Hernandeza M, PA 04/22/2020 R60.9 Edema, unspecified J[place]elinaclough Magdalena M, PA 04/22/2020 R06.02 Shortness of breath Jimmy Magdalena M, PA Plan of Treatment No Information Available Functional Status Description No Information Available Mental Status Description No Information Available Referrals Description No Information Available
--- OUTSIDE RECORDS SUMMARY | 2020-11-09 09:58 | CCD | Continuity of Care Document ---
Author Author Bhavesh MIRANDA [employer] [facility] [facility] Organization Unknown Address [address] [place] [address] [place] [address] Phone [phone] Care Team Providers Care Wire Coiler Name Role Phone Husam De Paz DO [facility] [phone] [employer] [facility] [phone] Problems Description No Information Available Social History Type Date Description Comments Sex Unknown ETOH Use Occasionally consumes alcohol Tobacco Use Start: Unknown Patient has never smoked Smoking Status Reviewed: 09/02/20 Patient has never smoked Allergies, Adverse Reactions, Alerts Description No Known Drug Allergies Medications Active Medications SIG Qnty Indications Ordering Provide r Date Xyzal Allergy 24HR Unknown Sudafed Unknown Flonase Allergy Relief 50mcg/Act Suspension 2 sprays each nares daily Unknown Immunizations Description No Information Available Vital Signs Date Vital Result Comment 09/02/2020 5:42pm BP Systolic 149 mmHg BP Diastolic 93 mmHg Heart Rate 83 /min Respiratory Rate 20 /min O2 % BldC Oximetry 96 % Body Temperature 99.1 F Weight 282.00 lb Height 71 inches 5'11" BMI (Body Mass Index) 39.3 kg/m2 Pain Level 2 02/05/2017 3:21pm BP Systolic 127 mmHg BP Diastolic 92 mmHg Heart Rate 79 /min O2 % BldC Oximetry 94 % Body Temperature 98.3 F Weight 245.00 lb Height 71 inches 5'11" BMI (Body Mass Index) 34.2 kg/m2 Pain Level 2 Results Description No Information Available Procedures Description No Information Available Medical Devices Description No Information Available Encounters Type Date Location Provider Dx Diagnosis Office Visit 09/02/2020 5:10p Main [facility] Janneth Miranda NP J06. 9 Acute upper respiratory infection, unspecified Z20.828 Contact w and exposure to ot h viral communicable diseases Assessments Date Code Description Provider 09/02/2020 J06.9 Acute upper respiratory infectio n, unspecified Janneth Miranda NP 09/02/2020 Z20.828 Contact with and (fall spected) exposure to other viral communicable diseases Janneth Miranda NP Plan of Treatment No Information Available Functional Status Description No Information Available Mental Status Description No Information Available Referrals Description No Information Available
--- OUTSIDE RECORDS SUMMARY | 2020-11-09 09:58 | CCD | Continuity of Care Document ---
Author Author Bhavesh MIR[facility]DA [facility] Organization Unknown Address [address] [place] [address] [place] [address] Phone [phone] Care Team Providers Care Bun Icer Name Role Phone Husam De Paz DO [facility] [phone] [employer] [facility] [phone] Problems Description No Information Available Social History [...]
--- OUTSIDE RECORDS SUMMARY | 2020-11-09 09:58 | CCD ---
Author Author [facility] Organization [facility] Address Unknown Phone Unavailable Care Team Providers Care Precision Jig Grinder Name Role Phone Jimmy, Magdalena PA Unavailable Unavailable Barraclough, Magdalena PA Unavailable Unavailable Barraclough, Magdalena PA Unavailable Unavailable Barraclough, Magdalena PA Unavailable Unavailable Barraclough, Magdalena PA Unavailable Unavailable Barracldomenica, Magdalena PA Unavailable Unavailable Michael GONZALEZ NP Unavailable Unavailable Michael GONZALEZ NP Unavailable Unavailable Michael GONZALEZ NP Unavailable Unavailable Michael GONZALEZ NP Unavailable Unavailable Michael GONZALEZ SUPERVISOR TRAVEL INFORMATION CENTER Unavailable Unavailable Michael GONZALEZ NP Unavailable Unavailable iMchael GONZALEZ NP Unavailable Unavailable Michael GONZALEZ NP Unavailable Unavailable Michael GONZALEZ NP Unavailable Unavailable Michael GONZALEZ NP Unavailable Unavailable Michael GONZALEZ NP Unavailable Unavailable Michael GONZALEZ SUPERVISOR TRAVEL INFORMATION CENTER Unavailable Unavailable Michael GONZALEZ NP Unavailable Unavailable Michael GONZALEZ NP Unavailable Unavailable Michael GONZALEZ NP Unavailable Unavailable GONZALEZ, M FRANDY SUPERVISOR TRAVEL INFORMATION CENTER Unavailable Unavailable GONZALEZ, M FRANDY SUPERVISOR TRAVEL INFORMATION CENTER Unavailable Unavailable GONZALEZ, M FRANDY SUPERVISOR TRAVEL INFORMATION CENTER Unavailable Unavailable GONZALEZ, M FRANDY SUPERVISOR TRAVEL INFORMATION CENTER Unavailable Unavailable GONZALEZ, M FRANDY SUPERVISOR TRAVEL INFORMATION CENTER Unavailable Unavailable GONZALEZ, M FRANDY SUPERVISOR TRAVEL INFORMATION CENTER Unavailable Unavailable GONZALEZ, M FRANDY SUPERVISOR TRAVEL INFORMATION CENTER Unavailable Unavailable GONZALEZ, M FRANDY SUPERVISOR TRAVEL INFORMATION CENTER Unavailable Unavailable GONZALEZ, M FRANDY SUPERVISOR TRAVEL INFORMATION CENTER Unavailable Unavailable GONZALEZ, M FRANDY SUPERVISOR TRAVEL INFORMATION CENTER Unavailable Unavailable GONZALEZ, M FRANDY SUPERVISOR TRAVEL INFORMATION CENTER Unavailable Unavailable GONZALEZ, M FRANDY SUPERVISOR TRAVEL INFORMATION CENTER Unavailable Unavailable GONZLAEZ, M FRANDY SUPERVISOR TRAVEL INFORMATION CENTER Unavailable Unavailable GONZALEZ, M FRANDY SUPERVISOR TRAVEL INFORMATION CENTER Unavailable Unavailable GONZALEZ, M FRANDY SUPERVISOR TRAVEL INFORMATION CENTER Unavailable Unavailable GONZALEZ, M FRNADY SUPERVISOR TRAVEL INFORMATION CENTER Unavailable Unavailable GONZALEZ, M FRANDY SUPERVISOR TRAVEL INFORMATION CENTER Unavailable Unavailable GONZALEZ, M FRANDY SUPERVISOR TRAVEL INFORMATION CENTER Unavailable Unavailable GONZALEZ, M FRANDY SUPERVISOR TRAVEL INFORMATION CENTER Unavailable Unavailable GONZALEZ, M FRANDY SUPERVISOR TRAVEL INFORMATION CENTER Unavailable Unavailable GONZALEZ, M FRANDY SUPERVISOR TRAVEL INFORMATION CENTER Unavailable Unavailable GONZALEZ, M FRANDY SUPERVISOR TRAVEL INFORMATION CENTER Unavailable Unavailable GONZALEZ, M FRANDY SUPERVISOR TRAVEL INFORMATION CENTER Unavailable Unavailable GONZALEZ, M FRANDY SUPERVISOR TRAVEL INFORMATION CENTER Unavailable Unavailable GONZALEZ, M FRANDY SUPERVISOR TRAVEL INFORMATION CENTER Unavailable Unavailable GONZALEZ, M FRANDY SUPERVISOR TRAVEL INFORMATION CENTER Unavailable Unavailable GONZALEZ, M FRANDY SUPERVISOR TRAVEL INFORMATION CENTER Unavailable Unavailable GONZALEZ, M FRANDY SUPERVISOR TRAVEL INFORMATION CENTER Unavailable Unavailable GONZALEZ, M FRANDY SUPERVISOR TRAVEL INFORMATION CENTER Unavailable Unavailable GONZALEZ, M FRANDY SUPERVISOR TRAVEL INFORMATION CENTER Unavailable Unavailable GONZALEZ, M FRANDY SUPERVISOR TRAVEL INFORMATION CENTER Unavailable Unavailable GONZALEZ, M FRANDY SUPERVISOR TRAVEL INFORMATION CENTER Unavailable Unavailable GONZALEZ, M FRANDY SUPERVISOR TRAVEL INFORMATION CENTER Unavailable Unavailable GONZALEZ, M FRANDY SUPERVISOR TRAVEL INFORMATION CENTER Unavailable Unavailable GONZALEZ, M FRANDY SUPERVISOR TRAVEL INFORMATION CENTER Unavailable Unavailable GONZALEZ, M FRANDY SUPERVISOR TRAVEL INFORMATION CENTER Unavailable Unavailable GONZALEZ, M FRANDY SUPERVISOR TRAVEL INFORMATION CENTER Unavailable Unavailable GONZALEZ, M FRANDY SUPERVISOR TRAVEL INFORMATION CENTER Unavailable Unavailable GONZALEZ, M FRANDY SUPERVISOR TRAVEL INFORMATION CENTER Unavailable Unavailable GONZALEZ, M FRANDY SUPERVISOR TRAVEL INFORMATION CENTER Unavailable Unavailable GONZALEZ, M FRANDY SUPERVISOR TRAVEL INFORMATION CENTER Unavailable Unavailable GONZAELZ, M FRANDY SUPERVISOR TRAVEL INFORMATION CENTER Unavailable Unavailable GONZALEZ, M FRANDY SUPERVISOR TRAVEL INFORMATION CENTER Unavailable Unavailable Verbeck Jr, Adolfo Carlitos PA Unavailable Unavailable Verbeck Jr, Adolfo Carlitos PA Unavailable Unavailable Verbeck Jr, Adolfo Carlitos PA Unavailable Unavailable Verbeck Jr, Heppner Carlitos PA Unavailable Unavailable Verbeck Jr, Adolfo Carlitos PA Unavailable Unavailable Verbeck Jr, Adolfo Carlitos PA Unavailable Unavailable Verbeck Jr, Adolfo Carlitos PA Unavailable Unavailable Verbeck Jr, Heppner Carlitos PA Unavailable Unavailable Verbeck Jr, Heppner Carlitos PA Unavailable Unavailable Verbeck Jr, Adolfo Carlitos PA Unavailable Unavailable Verbeck Jr, Adolfo Carlitos PA Unavailable Unavailable Verbeck Jr, Adolfo Carlitos PA Unavailable Unavailable Verbeck Jr, Adolfo Carlitos PA Unavailable Unavailable Verbeck Jr, Adolfo Carlitos PA Unavailable Unavailable Verbeck Jr, Heppner Carlitos PA Unavailable Unavailable Verbeck Jr, Heppner Carlitos PA Unavailable Unavailable Verbeck Jr, Adolfo Carlitos PA Unavailable Unavailable Verbeck Jr, Adolfo Carlitos PA Unavailable Unavailable Verbeck Jr, Adolfo Carlitos PA Unavailable Unavailable Verbeck Jr, Heppner Carlitos PA Unavailable Unavailable Verbeck Jr, Heppner Carlitos PA Unavailable Unavailable Verbeck Jr, Heppner Carlitos PA Unavailable Unavailable Verbeck Jr, Heppner Carlitos PA Unavailable Unavailable Verbeck Jr, Heppner Carlitos PA Unavailable Unavailable Verbeck Jr, Heppner Carlitos PA Unavailable Unavailable Verbeck Jr, Heppner Carlitos PA Unavailable Unavailable Verbeck Jr, Heppner Carlitos PA Unavailable Unavailable Verbeck Jr, Heppner Carlitos PA Unavailable Unavailable Verbeck Jr, Adolfo Carlitos PA Unavailable Unavailable Verbeck Jr, Heppner Carlitos PA Unavailable Unavailable Verbeck Jr, Heppner Carlitos PA Unavailable Unavailable Verbeck Jr, Heppner Carlitos PA Unavailable Unavailable Verbeck Jr, Heppner Carlitos PA Unavailable Unavailable Verbeck Jr, Adolfo Carlitos PA Unavailable Unavailable Michael GONZALEZ SUPERVISOR TRAVEL INFORMATION CENTER Unavailable Unavailable Michael GONZALEZ SUPERVISOR TRAVEL INFORMATION CENTER Unavailable Unavailable Michael GONZALEZ SUPERVISOR TRAVEL INFORMATION CENTER Unavailable Unavailable Michael GONZALEZ SUPERVISOR TRAVEL INFORMATION CENTER Unavailable Unavailable Michael GONZALEZ SUPERVISOR TRAVEL INFORMATION CENTER Unavailable Unavailable Michael GONZALEZ SUPERVISOR TRAVEL INFORMATION CENTER Unavailable Unavailable Michael GONZALEZ SUPERVISOR TRAVEL INFORMATION CENTER Unavailable Unavailable Michael GONZALEZ SUPERVISOR TRAVEL INFORMATION CENTER Unavailable Unavailable Michael GONZALEZ SUPERVISOR TRAVEL INFORMATION CENTER Unavailable Unavailable Michael GONZALEZE SUPERVISOR TRAVEL INFORMATION CENTER Unavailable Unavailable Michael GONZALEZE SUPERVISOR TRAVEL INFORMATION CENTER Unavailable Unavailable Michael GONZALEZE SUPERVISOR TRAVEL INFORMATION CENTER Unavailable Unavailable Michael GONZALEZ SUPERVISOR TRAVEL INFORMATION CENTER Unavailable Unavailable Michael GONZALEZ SUPERVISOR TRAVEL INFORMATION CENTER Unavailable Unavailable Michael GONZALEZ SUPERVISOR TRAVEL INFORMATION CENTER Unavailable Unavailable Michael GONZALEZ SUPERVISOR TRAVEL INFORMATION CENTER Unavailable Unavailable Michael GONZALEZE SUPERVISOR TRAVEL INFORMATION CENTER Unavailable Unavailable Michael GONZALEZE SUPERVISOR TRAVEL INFORMATION CENTER Unavailable Unavailable Michael GONZALEZE SUPERVISOR TRAVEL INFORMATION CENTER Unavailable Unavailable GONZALEZ, M FRANDY SUPERVISOR TRAVEL INFORMATION CENTER Unavailable Unavailable GONZALEZ, M FRANDY SUPERVISOR TRAVEL INFORMATION CENTER Unavailable Unavailable GONZALEZ, M FRANDY SUPERVISOR TRAVEL INFORMATION CENTER Unavailable Unavailable GONZALEZ, M FRANDY SUPERVISOR TRAVEL INFORMATION CENTER Unavailable Unavailable GONZALEZ, M FRANDY SUPERVISOR TRAVEL INFORMATION CENTER Unavailable Unavailable GONZALEZ, M FRANDY SUPERVISOR TRAVEL INFORMATION CENTER Unavailable Unavailable GONZALEZ, M FRANDY SUPERVISOR TRAVEL INFORMATION CENTER Unavailable Unavailable GONZALEZ, M FRANDY SUPERVISOR TRAVEL INFORMATION CENTER Unavailable Unavailable GONZALEZ, M FRANDY SUPERVISOR TRAVEL INFORMATION CENTER Unavailable Unavailable GONZALEZ, M FRANDY SUPERVISOR TRAVEL INFORMATION CENTER Unavailable Unavailable GONZALEZ, M FRANDY SUPERVISOR TRAVEL INFORMATION CENTER Unavailable Unavailable GONZALEZ, M FRANDY SUPERVISOR TRAVEL INFORMATION CENTER Unavailable Unavailable GONZALEZ, M FRANDY SUPERVISOR TRAVEL INFORMATION CENTER Unavailable Unavailable GONZALEZ, M FRANDY SUPERVISOR TRAVEL INFORMATION CENTER Unavailable Unavailable GONZALEZ, M FRANDY SUPERVISOR TRAVEL INFORMATION CENTER Unavailable Unavailable GONZALEZ, M FRANDY SUPERVISOR TRAVEL INFORMATION CENTER Unavailable Unavailable GONZALEZ, M FRANDY SUPERVISOR TRAVEL INFORMATION CENTER Unavailable Unavailable GONZALEZ, M FRANDY SUPERVISOR TRAVEL INFORMATION CENTER Unavailable Unavailable GONZALEZ, M FRANDY SUPERVISOR TRAVEL INFORMATION CENTER Unavailable Unavailable GONZALEZ, M FRANDY SUPERVISOR TRAVEL INFORMATION CENTER Unavailable Unavailable GONZALEZ, M FRANDY SUPERVISOR TRAVEL INFORMATION CENTER Unavailable Unavailable GONZALEZ, M FRANDY SUPERVISOR TRAVEL INFORMATION CENTER Unavailable Unavailable GONZALEZ, M FRANDY SUPERVISOR TRAVEL INFORMATION CENTER Unavailable Unavailable GONZALEZ, M FRANDY SUPERVISOR TRAVEL INFORMATION CENTER Unavailable Unavailable GONZALEZ, M FRANDY SUPERVISOR TRAVEL INFORMATION CENTER Unavailable Unavailable GONZALEZ, M FRANDY SUPERVISOR TRAVEL INFORMATION CENTER Unavailable Unavailable GONZALEZ, M FRANDY SUPERVISOR TRAVEL INFORMATION CENTER Unavailable Unavailable GONZALEZ, M FRANDY SUPERVISOR TRAVEL INFORMATION CENTER Unavailable Unavailable GONZALEZ, M FRANDY SUPERVISOR TRAVEL INFORMATION CENTER Unavailable Unavailable GONZALEZ, M FRANDY SUPERVISOR TRAVEL INFORMATION CENTER Unavailable Unavailable GONZALEZ, M FRANDY SUPERVISOR TRAVEL INFORMATION CENTER Unavailable Unavailable GONZALEZ, M FRANDY SUPERVISOR TRAVEL INFORMATION CENTER Unavailable Unavailable GONZALEZ, M FRANDY SUPERVISOR TRAVEL INFORMATION CENTER Unavailable Unavailable GONZALEZ, M FRANDY SUPERVISOR TRAVEL INFORMATION CENTER Unavailable Unavailable GONZALEZ, M FRANDY SUPERVISOR TRAVEL INFORMATION CENTER Unavailable Unavailable GONZALEZ, M FRANDY SUPERVISOR TRAVEL INFORMATION CENTER Unavailable Unavailable GONZALEZ, M FRANDY SUPERVISOR TRAVEL INFORMATION CENTER Unavailable Unavailable GONZALEZ, M FRANDY SUPERVISOR TRAVEL INFORMATION CENTER Unavailable Unavailable GONZALEZ, M FRANDY SUPERVISOR TRAVEL INFORMATION CENTER Unavailable Unavailable Fish, J Husam Unavailable Unavailable Fish, J Husam Unavailable Unavailable Fish, J Husam Unavailable Unavailable Fish, J Husam Unavailable Unavailable Fish, J Husam Unavailable Unavailable Fish, J Husam Unavailable Unavailable Fish, J Husam Unavailable Unavailable Fish, J Husam Unavailable Unavailable Fish, J Husam Unavailable Unavailable Fish, J Husam Unavailable Unavailable Fish, J Husam Unavailable Unavailable Fish, J Husam Unavailable Unavailable Fish, J Husam Unavailable Unavailable Fish, J Husam Unavailable Unavailable Fish, J Husam Unavailable Unavailable Fish, J Husam Unavailable Unavailable Fish, J Husam Unavailable Unavailable Fish, J Husam Unavailable Unavailable Fish, J Husam Unavailable Unavailable Fish, J Husam Unavailable Unavailable Fish, J Husam Unavailable Unavailable Fish, J Husam Unavailable Unavailable Fish, J Husam Unavailable Unavailable Fish, J Husam Unavailable Unavailable Fish, J Husam Unavailable Unavailable Fish, J Husam Unavailable Unavailable Fish, J Husam Unavailable Unavailable Fish, J Husam Unavailable Unavailable Fish, J Husam Unavailable Unavailable Fish, J Husam Unavailable Unavailable Fish, J Husam Unavailable Unavailable Fish, J Husam Unavailable Unavailable Fish, J Husam Unavailable Unavailable Fish, J Husam Unavailable Unavailable Fish, J Husam Unavailable Unavailable Fish, J Husam Unavailable Unavailable Fish, J Husam Unavailable Unavailable Fish, J Husam Unavailable Unavailable Fish, J Husam Unavailable Unavailable Fish, J Husam Unavailable Unavailable Fish, J Husam Unavailable Unavailable Fish, J Husam Unavailable Unavailable Fish, J Husam Unavailable Unavailable Fish, J Husam Unavailable Unavailable Fish, J Husam Unavailable Unavailable Fish, J Husam Unavailable Unavailable Fish, J Husam Unavailable Unavailable Fish, J Husam Unavailable Unavailable Fish, J Husam Unavailable Unavailable Fish, J Husam Unavailable Unavailable Fish, J Husam Unavailable Unavailable Fish, J Husam Unavailable Unavailable Fish, J Husam Unavailable Unavailable Fish, J Husam Unavailable Unavailable Fish, J Husam Unavailable Unavailable Fish, J Husam Unavailable Unavailable Fish, J Husam Unavailable Unavailable Fish, J Husam Unavailable Unavailable Fish, J Husam Unavailable Unavailable Fish, J Husam Unavailable Unavailable Fish, J Husam Unavailable Unavailable Fish, J Husam Unavailable Unavailable Fish, J Husam Unavailable Unavailable Fish, J Husam Unavailable Unavailable Fish, J Husam Unavailable Unavailable Fish, J Husam Unavailable Unavailable Fish, J Husam Unavailable Unavailable Fish, J Husam Unavailable Unavailable Fish, J Husam Unavailable Unavailable Fish, J Husam Unavailable Unavailable Fish, J Husam Unavailable Unavailable Fish, J Husam Unavailable Unavailable Fish, J Husam Unavailable Unavailable Fish, J Husam Unavailable Unavailable Fish, J Husam Unavailable Unavailable Fish, J Husam Unavailable Unavailable Fish, J Husam Unavailable Unavailable Fish, J Husam Unavailable Unavailable Fish, J Husam Unavailable Unavailable Fish, J Husam Unavailable Unavailable Fish, J Husam Unavailable Unavailable Fish, J Husam Unavailable Unavailable Fish, J Husam Unavailable Unavailable Fish, J Husam Unavailable Unavailable Fish, J Husam Unavailable Unavailable Lauren, Janneth SUPERVISOR TRAVEL INFORMATION CENTER Unavailable Unavailable Lauren, Janneth SUPERVISOR TRAVEL INFORMATION CENTER Unavailable Unavailable Lauren, Janneth SUPERVISOR TRAVEL INFORMATION CENTER Unavailable Unavailable Lauren, Janneth SUPERVISOR TRAVEL INFORMATION CENTER Unavailable Unavailable Lauren, Janneth SUPERVISOR TRAVEL INFORMATION CENTER Unavailable Unavailable Lauren, Janneth SUPERVISOR TRAVEL INFORMATION CENTER Unavailable Unavailable Lauren, Janneth SUPERVISOR TRAVEL INFORMATION CENTER Unavailable Unavailable Lauren, Janneth SUPERVISOR TRAVEL INFORMATION CENTER Unavailable Unavailable Lauren, Janneth SUPERVISOR TRAVEL INFORMATION CENTER Unavailable Unavailable Lauren, Janneth SUPERVISOR TRAVEL INFORMATION CENTER Unavailable Unavailable Lauren, Janneth SUPERVISOR TRAVEL INFORMATION CENTER Unavailable Unavailable Re-disclosure Warning The records that you are about to access may contain information from federally-assisted alcohol or drug abuse programs. If such information is present, then the following federally mandated warning applies: This information has been disclosed to you from records protected by federal confidentiality rules (42 CFR part 2). The federal rules prohibit you from making any further disclosure of this information unless further disclosure is expressly permitted by the written consent of the person to whom it pertains or as otherwise permitted by 42 CFR part 2. A general authorization for the release of medical or other information is NOT sufficient for this purpose. The Federal rules restrict any use of the information to criminally investigate or prosecute any alcohol or drug abuse patient.The records that you are about to access may contain highly sensitive health information, the redisclosure of which is protected by Article 27-F of the [facility] Public Health law. If you continue you may have access to information: Regarding HIV / AIDS; Provided by facilities licensed or operated by the [facility] Office of Mental Health; or Provided by the [facility] Office for People With Developmental Disabilities. If such information is present, then the following [facility] mandated warning applies: This information has been disclosed to you from confidential records which are protected by state law. State law prohibits you from making any further disclosure of this information without the specific written consent of the person to whom it pertains, or as otherwise permitted by law. Any unauthorized further disclosure in violation of state law may result in a fine or chcf sentence or both. A general authorization for the release of medical or other information is NOT sufficient authorization for further disc losure. Family History Family Member Name Family Member Gender Family Member Status Date o f Status Description Data Source(s) Unknown Unknown Problem [facility] ([facility]) Encounters Encounter Providers Location Date Indications Data Source(s ) Outpatient Attender: FRANDY GONZALEZ NPRef errer: FRANDY GONZALEZ NPConsultant: Carlitos Becerra Jr 09/29/2020 02:42:00 PM EST - 09/29/2020 02:52:00 PM EST [facility] Patient discharged. Outpatient Attender: FRANDY GONZALEZ NP [facility] 09/29 02:40:00 PM EST [facility] ([facility] Outpatient Attender: Magdalena ARSHAD [facility] 09/06/2020 12:00:00 PM EST [facility] ([facility] Outpatient Attender: Janneth sotelo 09/02/2020 04:10:00 PM EST [facility] ([facility]) Outpatient Attender: Magdalena ARSHAD [facility] 06/04/2020 10:00:00 AM EDT [facility] ([facility] Outpatient Attender: Magdalena ARSHAD [facility] 05/17/2020 01:00:00 PM EDT [facility] ([facility] Outpatient Attender: Husam Matthews er: Husam Zimmermansultant: Carlitos Becerra Jr 04/22/2020 12:26:00 PM EDT - 04/22/2020 12:36:00 PM EDT [facility] Outpatient Attender: Magdalena ARSHAD [facility] 04/22/2020 09:15:00 AM EDT [facility] ([facility] Outpatient Attender: Magdalena ARSHAD [facility] 12/16/2019 09:30:00 AM EDT [facility] ([facility] [address] [place] [address] 09/12/2019 12:00:00 AM EST eCW1 ([facility]) Immunizations Vaccine Date Status Description Data Source(s) New in 2012. IIV4 05/17/2020 01:59:00 PM EDT completed [facility] ([facility] Medications Medication Brand Name Start Date Product Form Dose Route Admi nistrative Instructions Pharmacy Instructions Status Indications Reaction Description Data Source(s) 7.5 mg 10/21/2020 12:00:00 AM EST tablet 60 TAKE ONE TABLET BY MOUTH TWICE A DAY TAKE ONE TABLET BY MOUTH TWICE A DAY SOLD: 11/04/2020 [facility] 40 mg 10/04/2020 12:00:00 AM EST capsule,delayed release (DR/EC) 30 TAKE ONE CAPSULE BY MOUTH EVERY DAY TAKE ONE CAPSULE BY MOUTH EVERY DAY SOLD: 10/04/2020 [facility] Omeprazole 40 MG Delayed Release Oral Capsule Omeprazole 09/29/2020 12:00:00 AM EST ORAL active [facility] ([facility] 7.5 mg 06/11/2020 12:00:00 AM EDT tablet 60 TAKE ONE TABLET BY MOUTH TWICE A DAY TAKE ONE TABLET BY MOUTH TWICE A DAY SOLD: 06/29/2020 [facility] 7.5 mg 05/19/2020 12:00:00 AM EDT tablet 60 TAKE ONE TABLET BY MOUTH TWICE A DAY TAKE ONE TABLET BY MOUTH TWICE A DAY SOLD: 05/19/2020 [facility] Injection (SC)/(Im) 05/17/2020 12:00:00 AM EDT completed [facility] ([facility] Medication administered onsite buspirone hydrochloride 7.5 MG Oral Tablet Buspirone HCL 05/17/2020 12:00:00 AM EDT ORAL active [facility] ([facility] Ibuprofen 600 MG Oral Tablet Ibuprofen 600 MG 09/12/2019 12:00:[address] active 1 tablet eCW1 ([facility]) Day Time Cold/Flu Relief 10-5-325 MG Day Time Cold/Flu Relie f 10-5-325 MG 09/12/2019 12:00:00 AM EST active 2 capsules as needed eCW1 ([facility]) Insurance Providers Payer name Policy type / Coverage type Policy ID Covered libertarian ID Covered libertarian's relationship to maier Policy Maier Plan Information [facility] [id number] SP [id number] [employer]BS [employer] DIV [id number] SP [id number] E[employer]IRE [facility] BLUE SHIELD -O/P [id number] 18 [id number] [facility] [id number] SP [id number] [employer] [facility] BLUE SHIELD -O/P [id number] 18 [id number] ANSI-Commercial [id number] ANSI-Commercial [id number] [facility] Commercial [id number] Self [id number] EMPIRE PLAN [facility] U [id number] Self [id number] E[employer] (STATE EMP) P [id number] S [id number] [employer] ([employer] EMP) P UNAVAILABLE S UNAVAILABLE Problems, Conditions, and Diagnoses Code Display Name Description Problem Type Effective Dates Data Source(s) [id number] Obstructive sleep apnea syndrome Obstructive sle ep apnea syndrome Problem 09/06/2020 12:00:00 AM EST [facility] ([facility] [id number] Anxiety state Anxiety state Problem 09/06/2020 12:00:00 AM EST [facility] ([facility] [id number] Restrictive lung disease Restrictive lung disease Prob noam 09/23/2019 12:00:00 AM EST [facility] ([facility] ) K429 Umbilical hernia without obstruction or gangrene Umbilical hernia without obstruction or gangrene Diagnosis 09/29/2020 02:42:00 PM [facility] R140 Abdominal distension (gaseous) Abdominal distension (g aseous) Diagnosis 09/29/2020 02:42:00 PM [facility] R1084 Generalized abdominal pain Generalized abdominal pain Diagnosis 09/29/2020 02:42:00 PM EST [facility] R0602 Shortness of breath Shortness of breath Diagnosis 0 04/22/2020 12:26:00 PM EDT [facility] R609 Edema, unspecified Edema, unspecified Diagnosis 0 12:26:00 PM EDT [facility] Surgeries/Procedures Procedure Description Date Indications Data Source(s) Injection (SC)/(Im) 05/17/2020 12:00:00 AM EDT [facility] ([facility] STREP A ASSAY W/OPTIC 09/12/2019 12:00:00 AM EST eCW1 ([facility]) Influenza A+B 09/12/2019 12:00:00 AM EST eCW1 ([facility]) Results ID Date Data Source [id number] 11/04/2020 11:00:00 AM EST [facility] Name Value Range Interpretation Code Description Data Edilma rce(s) Supporting Document(s) SARS coronavirus 2 RNA Not Detected [facility] This lab was ordered by [facility] and reported by [facility]. ID Date Data Source [id number] 09/29/2020 04:14:00 PM EST [facility] ([facility] Name Value Range Interpretation Code Description Data Edilma rce(s) Supporting Document(s) Amylase [Enzymatic activity/volume] in Serum or Plasma 69 U/L 30- 110 [facility] ([facility] Lipoprotein lipase [Enzymatic activity/volume] in Serum or Plasm a 51 U/L 13-60 [facility] ([facility] ) ID Date Data Source [id number] 09/29/2020 04:14:00 PM EST [facility] ([facility] Name Value Range Interpretation Code Description Data Edilma rce(s) Supporting Document(s) Glu 87 mg/dL 70-110 [facility] ([facility] NORMAL RANGES Age WBC RBC HGB HCT [...] HCT IS 5% LESS SOURCE FOR DATA: [employer] 1800 OPERATION MANUAL( AUTOMATED BLOOD COUNTS AND [...] Normal 80 and above >32 mL/min Normal BUN 15 mg/dL 8-23 [facility] ([facility] NORMAL RANGES Age WBC RBC HGB HCT [...] HCT IS 5% LESS SOURCE FOR DATA: [employer] 1800 OPERATION MANUAL( AUTOMATED BLOOD COUNTS AND [...] Normal 80 and above >32 mL/min Normal Creat 0.9 mg/dL 0.7-1.2 [facility] ([facility] NORMAL RANGES Age WBC RBC HGB HCT [...] HCT IS 5% LESS SOURCE FOR DATA: [employer] 1800 OPERATION MANUAL( AUTOMATED BLOOD COUNTS AND [...] Normal 80 and above >32 mL/min Normal BUN/Creatinine Ratio 17.5 [facility] ([facility] NORMAL RANGES Age WBC RBC HGB HCT [...] HCT IS 5% LESS SOURCE FOR DATA: [employer] 1800 OPERATION MANUAL( AUTOMATED BLOOD COUNTS AND [...] Normal 80 and above >32 mL/min Normal Na 137 mmol/L 136-145 [facility] ([facility] NORMAL RANGES Age WBC RBC HGB HCT [...] HCT IS 5% LESS SOURCE FOR DATA: RADHA DYN 1800 OPERATION MANUAL( AUTOMATED BLOOD COUNTS AND [...] Normal 80 and above >32 mL/min Normal CL 102.0 mmol/L 98.0-107.0 [facility] ([facility] NORMAL RANGES Age WBC RBC HGB HCT [...] HCT IS 5% LESS SOURCE FOR DATA: [employer] 1800 OPERATION MANUAL( AUTOMATED BLOOD COUNTS AND [...] Normal 80 and above >32 mL/min Normal K 4.5 mmol/L 3.5-5.1 [facility] ([facility] NORMAL RANGES Age WBC RBC HGB HCT [...] HCT IS 5% LESS SOURCE FOR DATA: [employer] 1800 OPERATION MANUAL( AUTOMATED BLOOD COUNTS AND [...] Normal 80 and above >32 mL/min Normal CA 9.6 mg/dL 8.6-10.2 [facility] NORMAL RANGES Age WBC RBC HGB HCT [...] HCT IS 5% LESS SOURCE FOR DATA: [employer] 1800 OPERATION MANUAL( AUTOMATED BLOOD COUNTS AND [...] Normal 80 and above >32 mL/min Normal Co2 26.7 mmol/L 22.0-29.0 [facility] ([facility] NORMAL RANGES Age WBC RBC HGB HCT [...] HCT IS 5% LESS SOURCE FOR DATA: [employer] 1800 OPERATION MANUAL( AUTOMATED BLOOD COUNTS AND [...] Normal 80 and above >32 mL/min Normal A/G Ratio 1.7 [facility] ([facility] NORMAL RANGES Age WBC RBC HGB HCT [...] HCT IS 5% LESS SOURCE FOR DATA: [employer] 1800 OPERATION MANUAL( AUTOMATED BLOOD COUNTS AND [...] Normal 80 and above >32 mL/min Normal TP 7.1 g/dL 6.6-8.7 [facility] ([facility] NORMAL RANGES Age WBC RBC HGB HCT [...] HCT IS 5% LESS SOURCE FOR DATA: [employer] 1800 OPERATION MANUAL( AUTOMATED BLOOD COUNTS AND [...] Normal 80 and above >32 mL/min Normal Alb 4.5 g/dL 3.5-5.2 [facility] ([facility] NORMAL RANGES Age WBC RBC HGB HCT [...] HCT IS 5% LESS SOURCE FOR DATA: [employer] 1800 OPERATION MANUAL( AUTOMATED BLOOD COUNTS AND [...] Normal 80 and above >32 mL/min Normal Globulin 2.7 CALC [facility] NORMAL RANGES Age WBC RBC HGB HCT [...] HCT IS 5% LESS SOURCE FOR DATA: [employer] 1800 OPERATION MANUAL( AUTOMATED BLOOD COUNTS AND [...] Normal 80 and above >32 mL/min Normal Alp 96.7 U/L 40-129 [facility] NORMAL RANGES Age WBC RBC HGB HCT [...] HCT IS 5% LESS SOURCE FOR DATA: [employer] 1800 OPERATION MANUAL( AUTOMATED BLOOD COUNTS AND [...] Normal 80 and above >32 mL/min Normal Ast (Sgot) 19 U/L 0-40 [employer] ([facility] NORMAL RANGES Age WBC RBC HGB HCT MCV PLT Adult M 4.1-10.9 4.20-6.30 12.0-18.0 37.0-51.0 80-97 140-440 Adult F 4.1-10.9 4.04-5.48 12.0-18.0 37.0-51.0 - 140-440 0 -1 Yr 5.0-20.0 3.9-5.9 15-18 [...] HCT IS 5% LESS SOURCE FOR DATA: RADHA DYN 1800 OPERATION MANUAL( AUTOMATED BLOOD COUNTS AND [...] Normal 80 and above >32 mL/min Normal Tbili 0.41 mg/dL 0.0-1.2 [employer] ([facility] NORMAL RANGES Age WBC RBC HGB HCT [...] HCT IS 5% LESS SOURCE FOR DATA: [employer] 1800 OPERATION MANUAL( AUTOMATED BLOOD COUNTS AND [...] Normal 80 and above >32 mL/min Normal Alt (SGPT) 31 U/L 0-41 [facility] ([facility] NORMAL RANGES Age WBC RBC HGB HCT [...] HCT IS 5% LESS SOURCE FOR DATA: [employer] 1800 OPERATION MANUAL( AUTOMATED BLOOD COUNTS AND [...] Normal 80 and above >32 mL/min Normal Osmolality-Calculated 274.4 [facility] ([facility] NORMAL RANGES Age WBC RBC HGB HCT [...] HCT IS 5% LESS SOURCE FOR DATA: [employer] 1800 OPERATION MANUAL( AUTOMATED BLOOD COUNTS AND [...] Normal 80 and above >32 mL/min Normal eGFR 122 # [facility] ( [facility] NORMAL RANGES Age WBC RBC HGB HCT [...] HCT IS 5% LESS SOURCE FOR DATA: [employer] 1800 OPERATION MANUAL( AUTOMATED BLOOD COUNTS AND [...] Normal 80 and above >32 mL/min Normal Anion Gap 13 mmol/L [facility] ([facility] NORMAL RANGES Age WBC RBC HGB HCT [...] HCT IS 5% LESS SOURCE FOR DATA: [employer] 1800 OPERATION MANUAL( AUTOMATED BLOOD COUNTS AND [...] Normal 80 and above >32 mL/min Normal eGFR Non-Afr. [place] 105 # [facility] ([facility] NORMAL RANGES Age WBC RBC HGB HCT [...] HCT IS 5% LESS SOURCE FOR DATA: [employer] 1800 OPERATION MANUAL( AUTOMATED BLOOD COUNTS AND [...] Normal 80 and above >32 mL/min Normal ID Date Data Source [id number] 09/29/2020 04:14:00 PM [facility] Name Value Range Interpretation Code Description Data Edilma rce(s) Supporting Document(s) Erythrocyte sedimentation rate by Westergren method 7 mm/hr 0-20 [facility] NORMAL RANGES Age WBC RBC HGB HCT [...] HCT IS 5% LESS SOURCE FOR DATA: [employer] 1800 OPERATION MANUAL( AUTOMATED BLOOD COUNTS AND [...] Normal 80 and above >32 mL/min Normal ID Date Data Source [id number] 09/29/2020 04:14:00 PM EST [facility] ([facility] Name Value Range Interpretation Code Description Data Edilma rce(s) Supporting Document(s) WBC 9.3 10E3/uL 4.1-10.9 [facility] ([facility] NORMAL RANGES Age WBC RBC HGB HCT [...] HCT IS 5% LESS SOURCE FOR DATA: [employer] DYN 1800 OPERATION MANUAL( AUTOMATED BLOOD COUNTS AND [...] Normal 80 and above >32 mL/min Normal RBC 4.85 10E6/uL 4.20-6.30 [employer] ([facility] NORMAL RANGES Age WBC RBC HGB HCT [...] HCT IS 5% LESS SOURCE FOR DATA: [employer] 1800 OPERATION MANUAL( AUTOMATED BLOOD COUNTS AND [...] Normal 80 and above >32 mL/min Normal MCV 95.3 fL 80.0-97.0 [facility] ([facility] NORMAL RANGES Age WBC RBC HGB HCT [...] HCT IS 5% LESS SOURCE FOR DATA: [employer] 1800 OPERATION MANUAL( AUTOMATED BLOOD COUNTS AND [...] Normal 80 and above >32 mL/min Normal HCT 46.2 % 37.0-51.0 [facility] ([facility] NORMAL RANGES Age WBC RBC HGB HCT [...] HCT IS 5% LESS SOURCE FOR DATA: [employer] 1800 OPERATION MANUAL( AUTOMATED BLOOD COUNTS AND [...] Normal 80 and above >32 mL/min Normal HGB 15.3 g/dL 12.0-18.0 [facility] ([facility] NORMAL RANGES Age WBC RBC HGB HCT [...] HCT IS 5% LESS SOURCE FOR DATA: [employer] DYN 1800 OPERATION MANUAL( AUTOMATED BLOOD COUNTS AND [...] Normal 80 and above >32 mL/min Normal MCH 31.5 pg 26.0-32.0 [facility] ([facility] NORMAL RANGES Age WBC RBC HGB HCT [...] HCT IS 5% LESS SOURCE FOR DATA: [employer] 1800 OPERATION MANUAL( AUTOMATED BLOOD COUNTS AND [...] Normal 80 and above >32 mL/min Normal MCHC 33.1 g/dL 31.0-36.0 [facility] ([facility] NORMAL RANGES Age WBC RBC HGB HCT [...] HCT IS 5% LESS SOURCE FOR DATA: [employer] 1800 OPERATION MANUAL( AUTOMATED BLOOD COUNTS AND [...] Normal 80 and above >32 mL/min Normal RDW-CV 14.0 % 11.5-14.5 [facility] NORMAL RANGES Age WBC RBC HGB HCT [...] HCT IS 5% LESS SOURCE FOR DATA: [employer] 1800 OPERATION MANUAL( AUTOMATED BLOOD COUNTS AND [...] Normal 80 and above >32 mL/min Normal PLT 428 10E3/uL 140-440 [facility] ([facility] NORMAL RANGES Age WBC RBC HGB HCT [...] HCT IS 5% LESS SOURCE FOR DATA: [employer] 1800 OPERATION MANUAL( AUTOMATED BLOOD COUNTS AND [...] Normal 80 and above >32 mL/min Normal Neut% 60.9 % 37.0-92.0 [facility] ([facility] NORMAL RANGES Age WBC RBC HGB HCT [...] HCT IS 5% LESS SOURCE FOR DATA: RADHA DYN 1800 OPERATION MANUAL( AUTOMATED BLOOD COUNTS AND [...] Normal 80 and above >32 mL/min Normal Lym% 28.3 % 10.0-58.5 [facility] NORMAL RANGES Age WBC RBC HGB HCT [...] HCT IS 5% LESS SOURCE FOR DATA: [employer] 1800 OPERATION MANUAL( AUTOMATED BLOOD COUNTS AND [...] Normal 80 and above >32 mL/min Normal Lym# 2.6 10E3/uL 0.6-4.1 [facility] ([facility] NORMAL RANGES Age WBC RBC HGB HCT [...] HCT IS 5% LESS SOURCE FOR DATA: [employer] 1800 OPERATION MANUAL( AUTOMATED BLOOD COUNTS AND [...] Normal 80 and above >32 mL/min Normal Neut# 5.7 % 2.0-7.8 [facility] ([facility] NORMAL RANGES Age WBC RBC HGB HCT [...] HCT IS 5% LESS SOURCE FOR DATA: [employer] 1800 OPERATION MANUAL( AUTOMATED BLOOD COUNTS AND [...] Normal 80 and above >32 mL/min Normal MXD% 10.8 % 0.1-24.0 [facility] NORMAL RANGES Age WBC RBC HGB HCT [...] HCT IS 5% LESS SOURCE FOR DATA: [employer] 1800 OPERATION MANUAL( AUTOMATED BLOOD COUNTS AND [...] Normal 80 and above >32 mL/min Normal MXD# 1.0 10E3/uL 0.0-1.8 [facility] ([facility] NORMAL RANGES Age WBC RBC HGB HCT [...] HCT IS 5% LESS SOURCE FOR DATA: [employer] 1800 OPERATION MANUAL( AUTOMATED BLOOD COUNTS AND [...] Normal 80 and above >32 mL/min Normal MPV 9.4 fL 9.0-13.0 [facility] ([facility] NORMAL RANGES Age WBC RBC HGB HCT [...] HCT IS 5% LESS SOURCE FOR DATA: [employer] 1800 OPERATION MANUAL( AUTOMATED BLOOD COUNTS AND [...] Normal 80 and above >32 mL/min Normal ID Date Data Source [id number] 09/30/2020 05:46:00 PM [facility] Name Value Range Interpretation Code Description Data Edilma rce(s) Supporting Document(s) Lipase [Enzymatic activity/volume] in Serum or Plasma 51 U/L 13 - 60 [facility] ID Date Data Source [id number] 09/30/2020 05:46:00 PM [facility] Name Value Range Interpretation Code Description Data Edilma rce(s) Supporting Document(s) Amylase [Enzymatic activity/volume] in Serum or Plasma 69 U/L 30 - 110 [facility] ID Date Data Source [id number] 09/02/2020 12:00:00 AM EST [facility] Name Value Range Interpretation Code Description Data Edilma rce(s) Supporting Document(s) SARS coronavirus 2 Ag [facility] This lab was ordered by [facility] and reported by [facility]. ID Date Data Source [id number] 05/17/2020 02:03:00 PM EDT [facility] ([facility] Name Value Range Interpretation Code Description Data Edilma rce(s) Supporting Document(s) Thyrotropin [Units/volume] in Serum or Plasma 1.025 ulU/mL 0.60-4.8 [facility] ([facility] ID Date Data Source [id number] 04/22/2020 01:48:00 PM EDT [facility] ([facility] Name Value Range Interpretation Code Description Data Edilma rce(s) Supporting Document(s) Glu 105 mg/dL 70-110 [facility] ([facility] CHRONIC KIDNEY DISEASE STAGING PER NKF: MALE [...] Normal 80 and above >32 mL/min Normal BUN 18 mg/dL 8-23 [facility] ([facility] CHRONIC KIDNEY DISEASE STAGING PER NKF: MALE [...] Normal 80 and above >32 mL/min Normal Creat 0.8 mg/dL 0.7-1.2 [facility] ([facility] CHRONIC KIDNEY DISEASE STAGING PER NKF: MALE [...] Normal 80 and above >32 mL/min Normal Na 139 mmol/L 136-145 [facility] ([facility] CHRONIC KIDNEY DISEASE STAGING PER NKF: MALE [...] Normal 80 and above >32 mL/min Normal BUN/Creatinine Ratio 20.8 Calc [facility] ([facility] CHRONIC KIDNEY DISEASE STAGING PER NKF: MALE [...] Normal 80 and above >32 mL/min Normal K 4.3 mmol/L 3.5-5.1 [facility] ([facility]er [facility] CHRONIC KIDNEY DISEASE STAGING PER NKF: MALE [...] Normal 80 and above >32 mL/min Normal CL 102.2 mmol/L 98.0-107.0 [facility] ([facility] Shayne garc[facility] CHRONIC KIDNEY DISEASE STAGING PER NKF: MALE [...] Normal 80 and above >32 mL/min Normal Co2 27.6 mmol/L 22.0-29.0 [facility] ([facility] CHRONIC KIDNEY DISEASE STAGING PER NKF: MALE [...] Normal 80 and above >32 mL/min Normal CA 9.2 mg/dL 8.6-10.2 [facility] ([facility] CHRONIC KIDNEY DISEASE STAGING PER NKF: MALE [...] Normal 80 and above >32 mL/min Normal TP 7.1 g/dL 6.6-8.7 [facility] ([facility] CHRONIC KIDNEY DISEASE STAGING PER NKF: MALE [...] Normal 80 and above >32 mL/min Normal Alb 4.5 g/dL 3.5-5.2 [facility] ([facility] CHRONIC KIDNEY DISEASE STAGING PER NKF: MALE [...] Normal 80 and above >32 mL/min Normal A/G Ratio 1.7 Calc [facility] ([facility] CHRONIC KIDNEY DISEASE STAGING PER NKF: MALE [...] Normal 80 and above >32 mL/min Normal Alp 91.5 U/L 40-129 [facility] ([facility] CHRONIC KIDNEY DISEASE STAGING PER NKF: MALE [...] Normal 80 and above >32 mL/min Normal Globulin 2.6 Calc [facility] ([facility] CHRONIC KIDNEY DISEASE STAGING PER NKF: MALE [...] Normal 80 and above >32 mL/min Normal Alt (SGPT) 32 U/L 0-41 [facility] ([facility] CHRONIC KIDNEY DISEASE STAGING PER NKF: MALE [...] Normal 80 and above >32 mL/min Normal Ast (Sgot) 26 U/L 0-40 [facility] ([facility] CHRONIC KIDNEY DISEASE STAGING PER NKF: MALE [...] Normal 80 and above >32 mL/min Normal Tbili 0.60 mg/dL 0.0-1.2 [facility] ([facility] CHRONIC KIDNEY DISEASE STAGING PER NKF: MALE [...] Normal 80 and above >32 mL/min Normal Osmolality-Calculated 281.0 [facility] ([facility] CHRONIC KIDNEY DISEASE STAGING PER NKF: MALE [...] Normal 80 and above >32 mL/min Normal Anion Gap 16 mmol/L [facility] CHRONIC KIDNEY DISEASE STAGING PER NKF: MALE [...] Normal 80 and above >32 mL/min Normal eGFR 129 # [facility] ( [facility] CHRONIC KIDNEY DISEASE STAGING PER NKF: MALE [...] Normal 80 and above >32 mL/min Normal eGFR Non-Afr. [place] 111 # [facility] ([facility] CHRONIC KIDNEY DISEASE STAGING PER NKF: MALE [...] Normal 80 and above >32 mL/min Normal ID Date Data Source [id number] 04/22/2020 10:08:00 AM EDT [facility] ([facility] Name Value Range Interpretation Code Description Data Edilma rce(s) Supporting Document(s) Natriuretic peptide.B prohormone N-Terminal [Mass/volu me] in Serum or Plasma 7 pg/mL 0-125 [facility] ([facility] ID Date Data Source [id number] 04/22/2020 01:36:00 PM EDT [facility] Name Value Range Interpretation Code Description Data Edilma rce(s) Supporting Document(s) BNP 7 PG/ML 0 - 125 [facility] ID Date Data Source GATS (NEGATIVE STREP SCREEN) 09/12/2019 12:00:00 AM EST eCW1 ([facility]) Name Value Range Interpretation Code Description Data Edilma rce(s) Supporting Document(s) FULL REPORT IN LAB NOTES (eCW and [facility]). GATS CULTURE (NEG STREP SCR) eCW1 ([facility]) Procedure Social History Code Duration Value Status Description Data Source(s ) Smoking 09/02/2020 12:00:00 AM EST Patient has never smoked co mpleted Patient has never smoked [facility] ([facility]) Smoking 09/23/2019 12:00:00 AM EST Patient has never smoked co mpleted Patient has never smoked [facility] ([facility], ) Vital Signs ID Date Data Source UNK Name Value Range Interpretation Code Description Data Source(s) Oxygen saturation in Arterial blood by Pulse oximetry 94 % 94 % [facility] ([facility] Body mass index (BMI) [Ratio] 40.9 kg/m2 40.9 k g/m2 [facility] ([facility] Disputanta body weight 172 [lb_av] 172 [lb_av] MED[facility] T ([facility] Body weight 293.00 [lb_av] 293.00 [lb_av] [facility] T ([facility] Body height 71 [in_i] 71 [in_i] [facility] 5'11" Respiratory rate 18 /min 18 /min [facility] ( [facility] Heart rate 86 /min 86 /min [facility] ([facility] Body temperature 97.5 [degF] 97.5 [degF] [facility] ([facility] Diastolic blood pressure 80 mm[Hg] 80 mm[Hg] [facility] ([facility] Systolic blood pressure 120 mm[Hg] 120 mm[Hg] M EDENT ([facility] Body surface area Derived from formula 2.49 m2 2.49 m2 [facility] ([facility]) Body weight 134.492 kg 134.492 kg [facility] ([facility]) Disput[place] body weight 172 [lb_av] 172 [lb_av] MEDEN T ([facility]) Body mass index (BMI) [Ratio] 41.3 kg/m2 41.3 k g/m2 [facility] ([facility]) Body weight 296.50 [lb_av] 296.50 [lb_av] MED[facility] T ([facility]) Body height 71 [in_i] 71 [in_i] [facility] ([facility]) 5'11" Heart rate 79 /min 79 /min [facility] ([facility]) Diastolic blood pressure 86 mm[Hg] 86 mm[Hg] [facility] ([facility]) Systolic blood pressure 150 mm[Hg] 150 mm[Hg] M EDENT ([facility], ) Oxygen saturation in Arterial blood by Pulse oximetry 95 % 95 % [facility] ([facility] ([place]), ([facility]) Body mass index (BMI) [Ratio] 40.4 kg/m2 40.4 k g/m2 [facility] ([facility] [place]put[place] body weight 172 [lb_av] 172 [lb_av] [facility] T ([facility] Body weight 290.00 [lb_av] 290.00 [lb_av] [facility] T ([facility] Body height 71 [in_i] 71 [in_i] [facility] ([facility] 5'11" Respiratory rate 19 /min 19 /min [facility] ( [facility] Heart rate 86 /min 86 /min [facility] ([facility] Body temperature 97.1 [degF] 97.1 [degF] [facility] ([facility] Diastolic blood pressure 86 mm[Hg] 86 mm[Hg] [facility] ([facility] Systolic blood pressure 138 mm[Hg] 138 mm[Hg] M TREVIN ([facility] Oxygen saturation in Arterial blood by Pulse oximetry 97 % 97 % [facility] ([facility] ([place]), ([facility]) Body mass index (BMI) [Ratio] 40.7 kg/m2 40.7 k g/m2 [facility] ([facility] [place] body weight 172 [lb_av] 172 [lb_av] MED[facility] T ([facility] Body weight 292.00 [lb_av] 292.00 [lb_av] MED[facility] T ([facility] Body height 71 [in_i] 71 [in_i] [facility] ([facility] 5'11" Respiratory rate 16 /min 16 /min [facility] ( [facility] Heart rate 95 /min 95 /min [facility] ([facility] Body temperature 97.8 [degF] 97.8 [degF] [facility] ([facility] Diastolic blood pressure 80 mm[Hg] 80 mm[Hg] [facility] ([facility] Systolic blood pressure 142 mm[Hg] 142 mm[Hg] M EDENT ([facility] Body mass index (BMI) [Ratio] 39.3 kg/m2 39.3 k g/m2 [facility] ([facility], [facility]) Body height 71 [in_i] 71 [in_i] [facility] ([facility]) 5'11" Body weight 282.00 [lb_av] 282.00 [lb_av] MEDEN T ([facility], [facility]) Body temperature 99.1 [degF] 99.1 [degF] [facility] ([facility], [facility]) Oxygen saturation in Arterial blood by Pulse oximetry 96 % 96 % [facility] ([facility], [facility]) Respiratory rate 20 /min 20 /min [facility] ( [facility]) Heart rate 83 /min 83 /min [facility] ([facility] [place], [facility]) Diastolic blood pressure 93 mm[Hg] 93 mm[Hg] [facility] ([facility], [facility]) Systolic blood pressure 149 mm[Hg] 149 mm[Hg] M EDENT ([facility], [facility]) Systolic blood pressure 110 mm[Hg] 110 mm[Hg] EDENT ([facility] Oxygen saturation in Arterial blood by Pulse oximetry 91 % 91 % [facility] ([facility] ([place]), ([facility]) Body mass index (BMI) [Ratio] 38.5 kg/m2 38.5 k g/m2 [facility] ([facility] [place]put[place] body weight 172 [lb_av] 172 [lb_av] MEDEN T ([facility] Body weight 276.00 [lb_av] 276.00 [lb_av] MEDEN T ([facility] Body height 71 [in_i] 71 [in_i] [facility] ([facility] 5'11" Respiratory rate 17 /min 17 /min [facility] ( [facility] Heart rate 75 /min 75 /min [facility] ([facility] Body temperature 97.7 [degF] 97.7 [degF] [facility] ([facility] Diastolic blood pressure 84 mm[Hg] 84 mm[Hg] [facility] ([facility] Oxygen saturation in Arterial blood by Pulse oximetry 93 % 93 % [facility] ([facility] ([place]), ([facility]) Body mass index (BMI) [Ratio] 39.9 kg/m2 39.9 k g/m2 [facility] ([facility] [place] body weight 172 [lb_av] 172 [lb_av] MED[facility] T ([facility] Body weight 286.00 [lb_av] 286.00 [lb_av] MEDEN T ([facility] Body height 71 [in_i] 71 [in_i] [facility] ([facility] 5'11" Respiratory rate 18 /min 18 /min [facility] ( [facility] Heart rate 85 /min 85 /min [facility] ([facility] Body temperature 98.0 [degF] 98.0 [degF] [facility] ([facility] Diastolic blood pressure 80 mm[Hg] 80 mm[Hg] [facility] ([facility] Systolic blood pressure 132 mm[Hg] 132 mm[Hg] M EDENT ([facility] Oxygen saturation in Arterial blood by Pulse oximetry 94 % 94 % [facility] ([facility] Body mass index (BMI) [Ratio] 40.2 kg/m2 40.2 k g/m2 [facility] ([facility] Body weight 288.00 [lb_av] 288.00 [lb_av] MEDEN T ([facility] Body height 71 [in_i] 71 [in_i] [facility] ([facility] 5'11" Respiratory rate 18 /min 18 /min [facility] ( [facility], [facility] Heart rate 88 /min 88 /min MEDENT ([facility] Body temperature 98.1 [degF] 98.1 [degF] MED[facility] ([facility] Diastolic blood pressure 76 mm[Hg] 76 mm[Hg] MED[facility] ([facility] Systolic blood pressure 128 mm[Hg] 128 mm[Hg] M EDENT ([facility] Diastolic blood pressure 90 mm[Hg] 90 mm[Hg] [facility] ([facility] Systolic blood pressure 140 mm[Hg] 140 mm[Hg] M EDENT ([facility] Oxygen saturation in Arterial blood by Pulse oximetry 94 % 94 % MED[facility] ([facility] Body mass index (BMI) [Ratio] 39.3 kg/m2 39.3 k g/m2 [facility] ([facility] Body weight 282.00 [lb_av] 282.00 [lb_av] MEDEN T ([facility] Body height 71 [in_i] 71 [in_i] MEDENT ([facility] 5'11" Respiratory rate 18 /min 18 /min MED[facility] ( [facility] Heart rate 94 /min 94 /min [facility] ([facility] Body temperature 98.6 [degF] 98.6 [degF] MED[facility] ([facility] Diastolic blood pressure 88 mm[Hg] 88 mm[Hg] MED[facility] ([facility] Systolic blood pressure 148 mm[Hg] 148 mm[Hg] M EDENT ([facility] Body surface area Derived from formula 2.43 m2 2.43 m2 MEDENT ([facility], ) Body weight 126.101 kg 126.101 kg [facility] ([facility], ) [place] body weight 172 [lb_av] 172 [lb_av] MEDEN T ([facility], ) Body mass index (BMI) [Ratio] 38.8 kg/m2 38.8 k g/m2 MEDENT ([facility], ) Body weight 278.00 [lb_av] 278.00 [lb_av] MEDEN T ([facility], ) Body height 71 [in_i] 71 [in_i] [facility] ([facility], ) 5'11" Oxygen saturation in Arterial blood by Pulse oximetry 93 % 93 % [facility] ([facility], ) Heart rate 87 /min 87 /min [facility] Diastolic blood pressure 80 mm[Hg] 80 mm[Hg] MEDENT ([facility]) Systolic blood pressure 132 mm[Hg] 132 mm[Hg] M EDENT ([facility]) Diastolic blood pressure 99 mm[Hg] 99 mm[Hg] eCW1 ([facility]) Systolic blood pressure 147 mm[Hg] 147 mm[Hg] e CW1 ([facility]) Body temperature 99.8 [degF] 99.8 [degF] eCW1 ( [facility]) Respiratory rate 18 /min 18 /min eCW1 ([facility]) Heart rate 102 /min 102 /min eCW1 ([facility]) Body mass index (BMI) [Ratio] 38.91 kg/m2 38.91 kg/m2 W1 ([facility]) Body height 71 [in_us] 71 [in_us] eCW1 ([facility]) Body weight Measured 279 [lb_av] 279 [lb_av] eC W1 ([facility]) Patient Treatment Plan of Care Planned Activity Planned Date Details Description Data Source (s) Ibuprofen 600 MG Oral Tablet 09/12/2019 12:00:00 AM EST eCW1 ([facility]) Day Time Cold/Flu Relief 10-5-325 MG 09/12/2019 12:00:00 AM EST eCW1 ([facility])
--- OUTSIDE RECORDS SUMMARY | 2020-11-09 09:58 | CCD | Continuity of Care Document ---
Author Author Bhavesh MARQUEZ PA Organization Unknown Address [address] [place], [place] [address] Phone [phone] Care Team Providers Care Smoke Jumper Supervisor Name Role Phone Husam De Paz D.O. [facility] [phone] Problems Active Problems Provider Date Allergic rhinitis Kourtney Gary [facility] Onset: 12/28/2005 Diaphragmatic hernia Husam De Paz D.O., [employer] Onset: Family history of ischemic heart disease Brant Sanz [facility] Onset: 09/24/2008 Social History Type Date [...] CPT Code Status Date Vaccine Lot # [id number] Given 05/17/2020 Influenza Virus Vaccine, Quadrivalent, Slit Virus, Im Use 3Y & Up [id number] Vital Signs Date Vital Result Comment 09/06/2020 1:05pm BP Systolic 142 mmHg BP Diastolic 80 mmHg Body Temperature 97.8 F Heart Rate 95 /min Respiratory Rate 16 /min Height 71 inches 5'11" Weight 292.00 lb [place] Body Weight 172 lb BMI (Body Mass Index) 40.7 kg/m2 O2 % BldC Oximetry 97 % (AT Rest), (Room Air ) 06/04/2020 9:54am BP Systolic 110 mmHg BP Diastolic 84 mmHg Body Temperature 97.7 F Heart Rate 75 /min Respiratory Rate 17 /min Height 71 inches 5'11" Weight 276.00 lb [place] Body Weight 172 lb BMI (Body Mass [...] eGFR 129 # Calc 2 eGFR Non-Afr. [place] Citizen 111 # Calc 3 Laboratory test finding 04/22/2020 [place] [address] [phone] Pro-BNP 7 pg/mL 0 - 125 1 [...] CKD-EPI Procedures Date Code Description Status 05/17/2020 05764 Injection (SC)/(Im) Completed Medical Devices Description No Information Available Encounters Type Date Location Provider Dx Diagnosis Office Visit 09/06/2020 1:00p [facility] Crystal Marquez PA F41.9 Anxiety disorder, unspecified G47.33 Obstructive sleep apnea (storm lt) (pediatric) Office Visit 06/04/2020 10:00a [facility] Crystal Marquez PA R45.4 Irritability and anger F41.9 Anxiety disorder, unspecifie d Office Visit 05/17/2020 1:00p [facility] Crystal Marquez PA R60.9 Edema, unspecified R45.4 Irritability and anger Z23 Encounter for immunization Office Visit 04/22/2020 9:15a [facility] Crystal Marquez PA R60.9 Edema, unspecified R06.02 Shortness of breath Assessments Date Code Description Provider 09/06/2020 F41.9 Anxiety disorder, unspecified Ba Crystal carra M, PA 09/06/2020 G47.33 Obstructive sleep apnea (adult) (pediatric) Crystal Marqueza M, PA 06/04/2020 R45.4 Irritability and anger Crystal Roa M, PA 06/04/2020 F41.9 Anxiety disorder, unspecified Ba Jose Maria carrantha M, PA 05/17/2020 R60.9 Edema, unspecified Jimmy Magdalena M, PA 05/17/2020 R45.4 Irritability and anger Jose Maria Roantha M, PA 05/17/2020 Z23 Encounter for immunization Crystal Hernandeza M, PA 04/22/2020 R60.9 Edema, unspecified Jimmy Magdalena M, PA 04/22/2020 R06.02 Shortness of breath Magdalena Marquez PA Plan of Treatment Future Appointment(s):* 12/07/2020 1:00 pm - Kourtney Gary FNP-[facility] at [facility] Functional Status Description No Information Available Mental Status Description No Information Available Referrals Description No Information Available
[2020-11-09] MEDS ORDERED: BUPIVACAINE LIPOSOME/PF 1.3% 20ML VIAL (13.3MG/ML)(EXPAREL)(C9290 PER1MG) As Ordered ONE (12:42)
[2020-11-09] MEDS ORDERED: BUPIVACAINE HCL 0.25% 10ML VIAL As Ordered ONE (12:42)
[2020-11-09] MEDS ORDERED: MIDAZOLAM INJ 2MG/2ML VIAL (J2250 PER 1MG) As Ordered ONE (13:13)
[2020-11-09] MEDS ORDERED: fentaNYL 250 MCG/5 ML INJECTION (J3010) As Ordered ONE (13:13)
[2020-11-09] MEDS ORDERED: METOCLOPRAMIDE INJ 10MG/2ML VIAL (J2765 PER 1) As Ordered ONE (13:13)
[2020-11-09] MEDS ORDERED: propofoL 200 MG/20 ML VIAL As Ordered ONE (13:13)
[2020-11-09] MEDS ORDERED: LIDOCAINE 2% 100MG/5ML SDV (FOR ANES.) As Ordered ONE (13:13)
[2020-11-09] MEDS ORDERED: SUGAMMADEX SODIUM 500 MG/5 ML VIAL (BRIDION) As Ordered ONE (13:13)
[2020-11-09] MEDS ORDERED: ONDANSETRON 4MG/2ML VIAL As Ordered ONE (13:13)
[2020-11-09] MEDS ORDERED: KETOROLAC 60MG 2ML VIAL As Ordered ONE (13:13)
[2020-11-09] MEDS ORDERED: dexameTHASONE 4 MG/ML 1ML VIAL (J1100 PER 1MG) As Ordered ONE (13:13)
[2020-11-09] MEDS ORDERED: ROCURONIUM BROMIDE 50 MG/5 ML VIAL As Ordered ONE ×2 (13:13→13:43)
[2020-11-09] MEDS ORDERED: ACETAMINOPHEN 1000MG 100ML IV BTL (OFIRMEV) (J0131 PER 10MG) As Ordered ONE (13:44)
[2020-11-09] MEDS ORDERED: fentaNYL 100 MCG/2 ML INJECTION (J3010) As Ordered ONE (14:23)
[2020-11-09] MEDS ORDERED: PERCOCET 5MG/325MG TAB As Ordered ONE (14:23)
[2020-11-09] MEDS: fentaNYL 100 MCG/2 ML INJECTION (J3010) IV PRN ×4 (14:25→14:56)
[2020-11-09] MEDS ORDERED: ONDANSETRON 4MG/2ML VIAL IV PRN (14:45)
[2020-11-09] MEDS ORDERED: NORCO, ANEXSIA 5/325MG TABLET (HYDROcodone/ACETAMINOPHEN) PO PRN (14:45)
[2020-11-09] MEDS ORDERED: METOCLOPRAMIDE INJ 10MG/2ML VIAL (J2765 PER 1) IV PRN (14:45)
[2020-11-09] MEDS ORDERED: PERCOCET 5MG/325MG TAB PO PRN (14:45)
[2020-11-09] MEDS ORDERED: LR 1,000 ML IV SCH (14:45)
[2020-11-09] MEDS ORDERED: LABETALOL 100MG/20ML VIAL As Ordered ONE (14:48)
[2020-11-09] MEDS ORDERED: NS 1,000 ML IV SCH (15:00)
[2020-11-09] MEDS ORDERED: LABETALOL 100MG/20ML VIAL IV SCH (15:15)
[2020-11-09] MEDS ORDERED: LABETALOL 100MG/20ML VIAL IV PRN (16:00)
[2020-11-09 19:00] VITALS: BP 130/80
[2020-11-09] MEDS ORDERED: KETOROLAC 30 MG/ML 1ML VIAL IV SCH (20:00)
== END 2020-11-09 19:15 | disposition home or self-care (01) ==
LOC: M SDC 09:52
PROVIDERS: ATTEND Surgery
DX: K42.9 Umbilical hernia without obstruction or gangrene (principal); G47.33 Obstructive sleep apnea (adult) (pediatric); F41.9 Anxiety disorder, unspecified; F32.9 Major depressive disorder, single episode, unspecified; K21.9 Gastro-esophageal reflux disease without esophagitis; Z79.899 Other long term (current) drug therapy
CPT/HCPCS: 49585; 88302; C1781; C9290; J0131; J0690; J1100; J1885; J2250; J2405; J2765; J3010

== ENCOUNTER → 2021-01-24 | Outpatient (CLI) | payer BC, OTHER ==
[~2021-01-24] MED LIST changes: -LR 1,000 ML IV ONE; -ceFAZolin SOD 2 GM in IV 1 EA IV ONE
== END ==
LOC: M LABSMTC 10:20
PROVIDERS: ATTEND Surgery
DX: Z01.812 Encounter for preprocedural laboratory examination (principal); Z20.822 Contact with and (suspected) exposure to COVID-19

== ENCOUNTER → 2021-08-04 | Outpatient (CLI) | payer BC, OTHER | LOC: M LABSMTC 09:12 | PROVIDERS: ATTEND Registered Nurse | DX: Z11.52 Encounter for screening for COVID-19 (principal) ==